=== PATIENT | female | born 1965 | race Caucasian/White ===

== ENCOUNTER 2017-06-18 22:13 | Emergency (ER) | payer SELFPAY ==
[2017-06-18 22:52] VITALS: BP 155/86
[2017-06-18] MEDS ORDERED: HYDROXYZINE PAMOATE 25 MG CAPSULE #4 (ER DISP) PO PRN (23:30)
--- NOTE | 2017-06-18 23:33 | ER Document Report ---
HPI - HPI Patient complains to provider of: anxiety Onset: This evening Onset/Duration: Gradual Quality of pain: No pain Pain Level: Denies Context: Patient states that her son killed himself 1 month ago today. Patient states that her nerves have been really bad and she has had difficulty in coping with this. Patient denies any suicidal or homicidal ideation. Patient complains of insomnia and feeling stressed. Patient is requesting something to help calm her nerves. Associated Symptoms: Other - Insomnia, anxiety Exacerbated by: Denies Relieved by: Denies Similar symptoms previously: No Recently seen / treated by doctor: No - ROS ROS below otherwise negative: Yes Systems Reviewed and Negative: Yes All other systems reviewed and negative - CONSTITUTIONAL Constitutional: DENIES: Fever - NEURO Neurology: DENIES: Headache - GASTROINTESTINAL Gastrointestinal: DENIES: Nausea - REPRODUCTIVE Reproductive: DENIES: : Past Medical History - General Information source: Patient - Social History Smoking Status: Never Smoker Frequency of alcohol use: None Drug Abuse: None Occupation: [employer] Lives with: Family Family History: Reviewed & Not Pertinent - Past Medical History Cardiac Medical History: Reports: Hx Hypertension Surgical Hx: Negative Past Surgical History: Reports: Hx Tonsillectomy - Immunizations Hx Diphtheria, Pertussis, Tetanus Vaccination: Yes Vertical Provider Document - CONSTITUTIONAL Agree With Documented VS: Yes Exam Limitations: No Limitations General Appearance: WD/WN, No Apparent Distress - INFECTION CONTROL TRAVEL OUTSIDE OF THE [place] IN LAST 30 DAYS: No - HEENT HEENT: Atraumatic, Normal ENT Exam, Normocephalic - NECK Neck: Normal Inspection, Supple, Thyroid Normal - RESPIRATORY Respiratory: Breath Sounds Normal, No Respiratory Distress O2 Sat by Pulse Oximetry: 100 - CARDIOVASCULAR Cardiovascular: Regular Rate, Regular Rhythm, No Murmur - MUSCULOSKELETAL/EXTREMETIES Musculoskeletal/Extremeties: MAEW - NEURO Level of Consciousness: Awake, Alert, Appropriate Motor/Sensory: No Motor Deficit - DERM Integumentary: Warm, Dry, No Rash Course - Re-evaluation Re-evalutation: 06/19/17 Patient denies any suicidal or homicidal ideation. Patient given outpatient referral information for mental health services as well as counseling. - Vital Signs Vital signs: Temp Pulse Resp BP Pulse Ox 97.7 F 78 16 155/86 H 100 06/18/17 22:50 06/18/17 22:50 06/18/17 22:50 06/18/17 22:50 06/18/17 22:50 Discharge - Discharge Clinical Impression: Situational anxiety Condition: Stable Disposition: HOME, SELF-CARE Instructions: Anxiety (OM) Additional Instructions: Return immediately for any new or worsening symptoms Followup with your primary care provider, call tomorrow to make a followup appointment Follow-up with a mental health provider from list provided for additional follow -up as well as counseling and support Prescriptions: Hydroxyzine HCl [Atarax 25 mg Tablet] 2 tab PO TID PRN #20 tablet PRN Reason: Forms: Return to Work Referrals: [facility] [Provider Group] - Follow up as needed
== END 2017-06-18 23:52 | disposition home or self-care (01) ==
LOC: ER 22:13
DX: F41.9 Anxiety disorder, unspecified (principal); I10 Essential (primary) hypertension
CPT/HCPCS: 99283; J3490

== ENCOUNTER 2017-08-06 19:39 | Emergency (ER) | payer SELFPAY ==
--- NOTE | 2017-08-06 20:17 | ER Document Report ---
HPI - HPI Patient complains to provider of: left knee pain Pain Level: 5 Context: patient is a 51-year-old female presents emergency department with a chief complaint of left knee pain. Denies any fall, trauma. States she she denies any recent travel, surgery, control or tobacco use. She denies any has been having issues with her left knee for years. She states that it is worse at the end of the day after work. Swelling, redness of her left lower extremity. Denies any history of DVT or PE. She does not follow with a primary care doctor - REPRODUCTIVE Reproductive: DENIES: : Past Medical History - Social History Smoking Status: Smoker,Current Status Unk Family History: Reviewed & Not Pertinent - Past Medical History Cardiac Medical History: Reports: Hx Hypertension Renal/ Medical History: Denies: Hx Peritoneal Dialysis Past Surgical History: Reports: Hx Tonsillectomy - Immunizations Hx Diphtheria, Pertussis, Tetanus Vaccination: Yes Vertical Provider Document - CONSTITUTIONAL Agree With Documented VS: Yes Notes: PHYSICAL EXAM GENERAL: Alert, interacts well. EXTREMITIES: Moves all 4 extremities spontaneously. Negative drawer and varus valgus testing of bilateral knees no edema, popliteal and dorsalis pedis pulses 2/4 bilaterally. No cyanosis. NEUROLOGICAL: Alert and oriented x4. Normal speech. Gait stable. Sensory, motor and reflex exams intact bilaterally PSYCH: Normal affect, normal mood. SKIN: Warm, dry, normal turgor. No rashes or lesions noted. - INFECTION CONTROL TRAVEL OUTSIDE OF THE [place] IN LAST 30 DAYS: No - RESPIRATORY O2 Sat by Pulse Oximetry: 99 Course - Re-evaluation Re-evalutation: 08/06/17 21:07 Patient is a 51-year-old female is hemodynamically stable, no acute distress, afebrile. Presentation is consistent with osteoarthritis. No evidence of a septic joint, gout flare, dislocation, or fracture on exam and imaging. Imaging shows evidence of osteoarthritis vitals wnl. At this time, I do not see an indication for labs or further imaging. Will discharge with conservative measures, return precautions, and follow-up recommendations. - Vital Signs Vital signs: Temp Pulse Resp BP Pulse Ox 97.5 F 75 14 142/89 H 99 08/06/17 19:58 08/06/17 19:58 08/06/17 19:58 08/06/17 19:58 08/06/17 19:58 - Diagnostic Test Radiology reviewed: Image reviewed, Reports reviewed Discharge - Discharge Clinical Impression: Osteoarthritis of left knee Qualifiers: Osteoarthritis type: primary Qualified Code(s): M17.12 - Unilateral primary osteoarthritis, left knee Condition: Good Disposition: HOME, SELF-CARE Instructions: Arthritis ([facility]), Knee Exercise Program ([facility]) Additional Instructions: You can utilize [id number] NSAIDs such as Aleve or Motrin which work is anti-inflammatories. Otherwise follow-up with pain management primary care for evaluation of your chronic knee pain. Forms: Return to Work Referrals: ROSA SERVIN MD [ACTIVE STAFF] - Follow up in 1 week [facility] [NO LOCAL MD] - Follow up as needed [facility] [Provider Group] - Follow up in 1 week (primary care)
--- NOTE | 2017-08-06 20:58 | RADIOLOGY REPORT (SQ) ---
EXAM DESCRIPTION: TIBIA FIBULA LEFT COMPLETED DATE/TIME: 08/06/2017 8:48 pm REASON FOR STUDY: chronic pain, swelling, no trauma COMPARISON: None. NUMBER OF VIEWS: Two views. TECHNIQUE: Two radiographic images acquired of the left tibia and fibula to include the knee and ank le in at least one projection. LIMITATIONS: None. FINDINGS: MINERALIZATION: Normal. BONES: No acute fracture or dislocation. No worrisome bone lesions. SOFT TISSUES: No obvious swelling or foreign body. OTHER: No other significant finding. IMPRESSION: NEGATIVE STUDY OF THE LEFT TIBIA AND FIBULA. NO RADIOGRAPHIC EVIDENCE OF ACUTE INJURY. TECHNICAL DOCUMENTATION: JOB ID: [id number] [employer]- All Rights Reserved
--- NOTE | 2017-08-06 20:58 | RADIOLOGY REPORT (SQ) ---
EXAM DESCRIPTION: KNEE LEFT 3 VIEWS COMPLETED DATE/TIME: 08/06/2017 8:48 pm REASON FOR STUDY: chronic pain, swelling, no trauma COMPARISON: None. NUMBER OF VIEWS: Three views. TECHNIQUE: AP, lateral, and sunrise patella radiographic images acquired of the left knee. LIMITATIONS: None. FINDINGS: MINERALIZATION: Normal. BONES: No acute fracture or dislocation. No worrisome bone lesions. JOINT: Mild tricompartmental osteoarthritis. No significant joint effusion. SOFT TISSUES: Medial soft tissue swelling. OTHER: No other significant finding. IMPRESSION: SOFT TISSUE SWELLING. MILD TRICOMPARTMENTAL OSTEOARTHRITIS. NO ACUTE OSSEOUS ABNORMALI TY. TECHNICAL DOCUMENTATION: JOB ID: [id number] [employer]- All Rights Reserved
[2017-08-06] MEDS ORDERED: IBUPROFEN 800 MG TABLET PO ONE (21:10)
[2017-08-06 21:25] VITALS: BP 146/88
== END 2017-08-06 21:25 | disposition home or self-care (01) ==
LOC: ER 19:39
DX: M17.12 Unilateral primary osteoarthritis, left knee (principal); M25.562 Pain in left knee; F17.200 Nicotine dependence, unspecified, uncomplicated
CPT/HCPCS: 99283

== ENCOUNTER 2018-11-09 12:09 | Emergency (ER) | payer SELFPAY ==
[2018-11-09] MEDS ORDERED: IPRATROPIUM/ALBUTEROL 0.5-2.5 MG/3 ML AMPUL NEB ONE (12:53)
[2018-11-09] MEDS ORDERED: PREDNISONE 20 MG TABLET PO ONE (12:53)
[2018-11-09] MEDS ORDERED: ACETAMINOPHEN 325 MG TABLET PO ONE (12:54)
--- NOTE | 2018-11-09 12:55 | ER Document Report ---
HPI - HPI Patient complains to provider of: cough Time Seen by Provider: 11/09/18 12:44 Onset: Other - 5 days Onset/Duration: Persistent Quality of pain: Achy Pain Level: 3 Context: Patient presents stating that she has been sick for the past week. Patient states initially she had fevers but has not had a fever for the past 4 days. Patient states she has had a productive cough with green sputum. Patient states that 4 days ago she had periumbilical pain but attributed this to needing to have a bowel movement. Patient states after having a bowel movement her sy mptoms resolved. Patient does complain of sinus congestion symptoms. Patient denies any headache pain at this time. Patient does complain of chills and body aches. Patient denies any nausea or vomiting. Associated Symptoms: Productive cough, Rhinnorhea, Sinus pain/drainage. denies: Chest pain, Earache Exacerbated by: Denies Relieved by: Denies Similar symptoms previously: Yes Recently seen / treated by doctor: No - ROS ROS below otherwise negative: Yes Systems Reviewed and Negative: Yes All other systems reviewed and negative - CONSTITUTIONAL Constitutional: REPORTS: Fever - 4 days ago, Chills - EENT EENT: REPORTS: Nasal Drainage-Clear, Congestion. DENIES: Sore Throat - NEURO Neurology: REPORTS: Headache - now better - CARDIOVASCULAR Cardiovascular: DENIES: Chest pain - RESPIRATORY Respiratory: REPORTS: Coughing - GASTROINTESTINAL Gastrointestinal: DENIES: Abdominal Pain, Patient vomiting, Diarrhea - REPRODUCTIVE Reproductive: DENIES: : - MUSCULOSKELETAL Musculoskeletal: DENIES: Back Pain - DERM Skin Color: Normal Skin Problems: None Past Medical History - General Information source: Patient - Social History Smoking Status: Never Smoker Frequency of alcohol use: None Drug Abuse: None Occupation: deliverer food Lives with: Family Family History: Reviewed & Not Pertinent - Past Medical History Cardiac Medical History: Reports: Hx Hypertension Renal/ Medical History: Denies: Hx Peritoneal Dialysis Past Surgical History: Reports: Hx Tonsillectomy - Immunizations Hx Diphtheria, Pertussis, Tetanus Vaccination: Yes Vertical Provider Document - CONSTITUTIONAL Agree With Documented VS: Yes Exam Limitations: No Limitations General Appearance: WD/WN, No Apparent Distress - INFECTION CONTROL TRAVEL OUTSIDE OF THE [place] IN LAST 30 DAYS: No - HEENT HEENT: Atraumatic, Normocephalic. negative: Pharyngeal Exudate, Pharyngeal Tenderness, Pharyngeal Erythema, Tympanic Membrane Red, Tympanic Membrane Bulging - NECK Neck: Normal Inspection, Supple. negative: Lymphadenopathy-Left, Lymphadenopathy-Right - RESPIRATORY Respiratory: No Respiratory Distress, Chest Non-Tender, Wheezing - CARDIOVASCULAR Cardiovascular: Regular Rate, Regular Rhythm, No Murmur. negative: Tachycardia - GI/ABDOMEN Gastrointestinal: Abdomen Soft, Abdomen Non-Tender, No Organomegaly, Normal Bowel Sounds - BACK Back: Normal Inspection - MUSCULOSKELETAL/EXTREMETIES Musculoskeletal/Extremeties: MAEW, FROM, Non-Tender, No Edema - NEURO Level of Consciousness: Awake, Alert, Appropriate Motor/Sensory: No Motor Deficit - DERM Integumentary: Warm, Dry, No Rash Course - Re-evaluation Re-evalutation: 11/09/18 14:45 Pt reports that her cough has improved after nebulizer treatment. Chest x-ray reviewed, no concern for pneumonia at this time. Patient continues to deny any headache or abdominal tenderness at this time. No concern for sepsis. - Vital Signs Vital signs: Temp Pulse Resp BP Pulse Ox 97.6 F 72 20 157/87 H 99 11/09/18 12:18 11/09/18 12:18 11/09/18 12:18 11/09/18 12:18 11/09/18 12:18 - Diagnostic Test Radiology reviewed: Image reviewed, Reports reviewed Discharge - Discharge Clinical Impression: Wheezing Upper respiratory infection Qualifiers: URI type: unspecified URI Qualified Code(s): J06.9 - Acute upper respiratory infection, unspecified Condition: Stable Disposition: HOME, SELF-CARE Additional Instructions: Return immediately for any new or worsening symptoms Followup with your primary care provider, call tomorrow to make a followup appointment UPPER RESPIRATORY ILLNESS: You have a viral infection of the respiratory passages -- a "cold." This common infection causes nasal congestion, drainage, and often sore throat and cough. It is highly contagious. The disease usually lasts about 10 to 14 days. There is no "cure" for the viral infection -- it must run its course. If there is a complication, such as bacterial infection in the nose, sinuses, middle ear, or bronchial tubes, antibiotics may be required. The antibiotics won't affect the virus. Drink plenty of fluids. A humidifier may help. An expectorant medication or decongestant may make you more comfortable. Use acetaminophen or ibuprofen for fever or aches. See the doctor if fever persists over two days, if there is any significant worsening of your symptoms, or if you simply fail to improve as expected. BRONCHOSPASM: You have tightness in the bronchial tubes, called bronchospasm. This often occurs with bronchial infections. Allergies, inhaled chemicals, and polluted or cold air can also provoke bronchospasm. It's more likely in patients with asthma in the family. Emergency treatment of bronchospasm may include adrenaline shots or bronchodilator aerosol. You may feel lightheaded and have a rapid pulse for an hour or two. Rest and get plenty of fluids. At home, we'll treat you with a bronchodilator inhaler. Antibiotics and corticosteroids may be required for some patients. Until you recover, avoid chemical fumes, dusts, pollens, and exercising in very cold or dry air. If you smoke, stop now!! If you develop a fever, increased wheezing, chest pain, or severe shortness of breath, you should contact the doctor immediately. INHALED BRONCHODILATORS: You have received a treatment of and/or prescription for an inhaled bronchodilator -- a medication which stimulates the airways in the lung to dilate. This improves the flow of air in asthma, bronchitis, and emphysema. These medicines have some similarity to adrenaline, and can cause similar side effects: shakiness, racing heart, and a sense of nervousness. These side effects decrease with time. Contact your doctor if these side effects are severe. Do not over-use the medicine. Too-frequent use of the inhaler may make it ineffective. Call your doctor if the inhaler is not controlling your symptoms at the prescribed doses. STEROID MEDICATION: You have been given an injection of or oral medicine of the cortisone/steroid class. This medication is used to control inflammation or allergy. Gordo t is usually only given for a short period of time, until the acute process subsides. There are usually no side effects from short-term use of cortisone-like medications. Some persons feel an increased sense of well-being and are not sleepy at bedtime. Long-term use of cortisone medications is best avoided, unless required for a severe condition. If your condition does not remit, or relapses after the course of corticosteroid medication, you should consult your physician. USE OF ACETAMINOPHEN (Tylenol): Acetaminophen may be taken for pain relief or fever control. It's much safer than aspirin, offering a wider range of "safe" dosages. It is safe during . Some brand names are Tylenol, Panadol, Datril, Anacin 3, Tempra, and Liquiprin. Acetaminophen can be repeated every four hours. The following are maximum recommended dosages: >89 pounds or adults 650 mg to 900 mg Acetaminophen can be repeated every four hours. Maximum dose not to exceed 4000 mg a day. FOLLOW-UP CARE: If you have been referred to a physician for follow-up care, [facility] for an appointment as you were instructed or within the next two days. If you experience worsening or a significant change in your symptoms, notify the physician immediately or return to the Emergency Department at any time for re-evaluation. Prescriptions: Albuterol Sulfate [Proair Hfa Inhalation Aerosol 8.5 gm Mdi] 2 puff IH Q4 PRN #1 mdi PRN Reason: Inhaler,Assist Device,Accesory [Optichamber] 1 each MC Q4 PRN #1 each PRN Reason: Prednisone [Deltasone 20 mg Tablet] 3 tab PO DAILY 4 Days tablet Forms: Return to Work Referrals: [facility] [Provider Group] - Follow up as needed [facility] [Provider Group] - Follow up as needed
--- NOTE | 2018-11-09 13:21 | RADIOLOGY REPORT (SQ) ---
EXAM DESCRIPTION: CHEST 2 VIEWS COMPLETED DATE/TIME: 11/09/2018 1:09 pm REASON FOR STUDY: cough COMPARISON: None. EXAM PARAMETERS: NUMBER OF VIEWS: two views TECHNIQUE: Digital Frontal and Lateral radiographic views of the chest acquired. RADIATION DOSE: NA LIMITATIONS: none FINDINGS: LUNGS AND PLEURA: No opacities, masses or pneumothorax. No pleural effusion. MEDIASTINUM AND HILAR STRUCTURES: No masses or contour abnormalities. HEART AND VASCULAR STRUCTURES: Heart normal size. No evidence for failure. BONES: Serpiginous thoracolumbar curvature. No acute bony abnormality. HARDWARE: None in the chest. OTHER: No other significant finding. IMPRESSION: NO ACUTE RADIOGRAPHIC FINDING IN THE CHEST. TECHNICAL DOCUMENTATION: JOB ID: [id number] [employer]- All Rights Reserved Reading location - IP/workstation name: [email or web address]
[2018-11-09 15:00] VITALS: BP 150/82
== END 2018-11-09 14:58 | disposition home or self-care (01) ==
LOC: ER 12:09
DX: J06.9 Acute upper respiratory infection, unspecified (principal); R05 Cough; R68.83 Chills (without fever); J34.89 Other specified disorders of nose and nasal sinuses; R06.2 Wheezing; I10 Essential (primary) hypertension
CPT/HCPCS: 94640; 99283; 71046; J7512; J7620

== ENCOUNTER 2018-11-14 10:02 | Emergency (ER) | payer SELFPAY ==
[2018-11-14] MEDS ORDERED: DIPH/PERTUSS(ACELL)/TETANUS VAC/PF 0.5 ML SYR (>=10YO) IM ONE (10:52)
--- NOTE | 2018-11-14 10:53 | ER Document Report ---
ED Medical Screen (RME) - General Chief Complaint: Leg Pain Stated Complaint: LEG PAIN Time Seen by Provider: 11/14/18 10:51 Mode of Arrival: Ambulatory Information source: Patient Notes: 53-year-old female presented to ED for complaint of right upper leg pain and swelling started after the weekend. 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 She denies smoking or doing any kind of hormones she does have a history of high blood pressure. Only surgeries are tonsillectomy as a child. She also cut her hand yesterday and her tetanus is not up-to-date so a tetanus shot will be given in the emergency room. Patient is alert oriented respirations regular and unlabored speaking in full sentences walks with a limp due to the pain in her right upper leg. I have greeted and performed a rapid initial assessment of this patient. A comprehensive ED assessment and evaluation of the patient, analysis of test res ults and completion of medical decision making process will be conducted by an additional ED providers. Dictation of this chart was performed using voice recognition software; therefore, there may be some unintended grammatical errors. TRAVEL OUTSIDE OF THE [place] IN LAST 30 DAYS: No - Related Data Allergies/Adverse Reactions: No Known Allergies Allergy (Unverified 11/09/18 12:11) Past Medical History - Social History Frequency of alcohol use: None Drug Abuse: None - Past Medical History Cardiac Medical History: Reports: Hx Hypertension Renal/ Medical History: Denies: Hx Peritoneal Dialysis Past Surgical History: Reports: Hx Tonsillectomy - Immunizations Hx Diphtheria, Pertussis, Tetanus Vaccination: Yes Physical Exam - Vital signs Vitals: Temp Pulse Resp BP Pulse Ox 97.7 F 67 20 145/90 H 97 11/14/18 10:14 11/14/18 10:14 11/14/18 10:14 11/14/18 10:14 11/14/18 10:14 Course - Vital Signs Vital signs: Temp Pulse Resp BP Pulse Ox 97.7 F 67 20 145/90 H 97 11/14/18 10:14 11/14/18 10:14 11/14/18 10:14 11/14/18 10:14 11/14/18 10:14
[2018-11-14 11:12] LABS: ABSOLUTE EOSINOPHILS # (AUTO) 0.2 10^3/uL (0.0-0.6); ABSOLUTE LYMPHOCYTES (AUTO) 1.4 10^3/uL (0.5-4.7); ABSOLUTE MONOCYTES (AUTO) 0.6 10^3/uL (0.1-1.4); ABSOLUTE NEUT (AUTO) 3.4 10^3/uL (1.7-8.2); BASOPHILS % (AUTO) 0.2 % (0-2); HEMATOCRIT 37.3 % (36.0-47.0); HEMOGLOBIN 12.1 g/dL (12.0-15.5); LYMPHOCYTES % (AUTO) 25.3 % (13-45); MEAN CORPUSCULAR HEMOGLOBIN 27.5 pg (27.0-33.4); MEAN CORPUSCULAR HGB CONC 32.6 g/dL (32.0-36.0); MEAN CORPUSCULAR VOLUME 84 fl (80-97); MONOCYTES % (AUTO) 10.1 % (3-13); PLATELET COUNT 277 10^3/uL (150-450); RED BLOOD COUNT 4.41 10^6/uL (3.72-5.28); RED CELL DISTRIBUTION WIDTH 14.5 % (11.5-14.0); SEGMENTED NEUTROPHILS % (AUTO) 61.4 % (42-78); TOTAL CELLS COUNTED % (AUTO) 100 %; WHITE BLOOD COUNT 5.5 10^3/uL (4.0-10.5)
[2018-11-14 11:31] LABS: ALANINE AMINOTRANSFERASE 30 U/L (9-52); ALBUMIN 3.9 g/dL (3.5-5.0); ALKALINE PHOSPHATASE 92 U/L (38-126); ANION GAP 9 (5-19); ASPARTATE AMINO TRANSFERASE 25 U/L (14-36); BILIRUBIN,DIRECT 0.2 mg/dL (0.0-0.4); BILIRUBIN,TOTAL 0.3 mg/dL (0.2-1.3); BLOOD UREA NITROGEN 16 mg/dL (7-20); CALCIUM 9.3 mg/dL (8.4-10.2); CARBON DIOXIDE 27 mmol/L (22-30); CHLORIDE 104 mmol/L (98-107); GLUCOSE 89 mg/dL (75-110); POTASSIUM 4.3 mmol/L (3.6-5.0); SODIUM 139.8 mmol/L (137-145); TOTAL PROTEIN 6.9 g/dL (6.3-8.2)
--- NOTE | 2018-11-14 13:18 | ER Document Report ---
ED General - General Chief Complaint: Leg Pain Stated Complaint: LEG PAIN Time Seen by Provider: 11/14/18 10:51 Primary Care Provider: RAYMUNDO HORTON DO [ACTIVE STAFF] - Follow up in 3-5 days (orthopedic surgery ) Mode of Arrival: Ambulatory Notes: Patient is a 53-year-old female that presents to the emergency department for chief complaint of right hip pain and possible swelling. Patient states she is had pain in her right hip and thigh over the past several days, she is not sure she may be pulled something at work, but is been painful particularly with walking. She describes as an aching pain, towards her groin, and worse with walking. She currently rates the pain at rest as a 4 out of 10. She denies any recent travel, or significant leg swelling, she thought it was possibly more swollen than her left leg, but she is not entirely sure. She denies any recent surgeries, denies any hormone supplementation. She denies any chest pain, shortness of breath, difficulty breathing. 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 She denies taking any medication at home to try to help relieve her pain. Past Medical History: Hypertension Past Surgical History: Tonsillectomy Social History: Denies tobacco, alcohol or drug use. Family History: Reviewed and noncontributory for presenting illness Allergies: Reviewed, see documented allergy list. REVIEW OF SYSTEMS: Other than noted above, the 12 point review of systems was reviewed with the patient and were negative, all pertinent findings are included in the HPI. PHYSICAL EXAMINATION: Vital signs reviewed, nursing noted reviewed. GENERAL: Obese female, but in no acute distress HEAD: Atraumatic, normocephalic. EYES: Eyes appear normal, extraocular movements intact, sclera anicteric, conjunctiva are normal. ENT: nares patent, oropharynx clear without exudates. Moist mucous membranes. NECK: Normal range of motion, supple without lymphadenopathy LUNGS: Breath sounds clear to auscultation bilaterally and equal. No wheezes rales or rhonchi. HEART: Regular rate and rhythm without murmurs ABDOMEN: Soft, nontender, normoactive bowel sounds. No rebound, guarding, or rigidity. No masses appreciated. EXTREMITIES: Nontender, good range of motion, no pitting or edema. Patient does have some discomfort with logrolling on the right lower extremity, there is no particular tenderness to palpation to the thigh, no significant edema bilaterally, the legs appear normal in size bilaterally, patient does have some superficial varicosities, in both legs, she states she has had these for a very long time. Otherwise she has good range of motion of all joints including the hips bilaterally, but she does have some discomfort with flexion of the hip on the right compared to the left. NEUROLOGICAL: No focal neurological deficits. Moves all extremities s pontaneously Motor and sensory grossly intact on exam. PSYCH: Normal mood, normal affect. SKIN: Warm, Dry, normal turgor, no rashes or lesions noted on exposed skin TRAVEL OUTSIDE OF THE [place] IN LAST 30 DAYS: No - Related Data Allergies/Adverse Reactions: No Known Allergies Allergy (Unverified 11/09/18 12:11) Past Medical History - General Information source: Patient - Social History Smoking Status: Never Smoker Frequency of alcohol use: None Drug Abuse: None Family History: Reviewed & Not Pertinent Patient has suicidal ideation: No Patient has homicidal ideation: No - Past Medical History Cardiac Medical History: Reports: Hx Hypertension Renal/ Medical History: Denies: Hx Peritoneal Dialysis Past Surgical History: Reports: Hx Tonsillectomy - Immunizations Hx Diphtheria, Pertussis, Tetanus Vaccination: Yes Physical Exam - Vital signs Vitals: Temp Pulse Resp BP Pulse Ox 97.7 F 67 20 145/90 H 97 11/14/18 10:14 11/14/18 10:14 11/14/18 10:14 11/14/18 10:14 11/14/18 10:14 Course - Re-evaluation Re-evalutation: Patient seen and examined vital signs reviewed. Laboratory data and/or imaging were ordered as appropriate for the patient's presenting symptoms and complaint, with consideration of any critical or life threatening conditions that may be associated with their obtained history and exam as noted above. Results were reviewed when available and demonstrated unremarkable blood work and evaluation, negative duplex imaging of the lower extremity, patient's physical exam is most consistent with acetabular impingement syndrome, given she is on her feet most the day, has pain mainly with hip flexion. The patient was re-evaluated and was stable, recommended treatment with naproxen 500 mg twice daily for a few weeks, patient given prescription advised follow-up with orthopedics Results were discussed with the patient at this point, after careful consideration I feel that that patient can be discharged from the emergency department, the patient was educated treatments and reasons to return to the emergency department based on their presumed diagnosis as noted above, they were advised to followup with a primary care physician in 2-3 days. Patient was agre eable to plan of care. *Note is created using voice recognition software and may contain spelling, syntax or grammatical errors. Laboratory 11/14/18 11/14/18 11:00 11:00 WBC 5.5 RBC 4.41 Hgb 12.1 Hct 37.3 MCV 84 MCH 27.5 MCHC 32.6 RDW 14.5 H Plt Count 277 Seg Neutrophils % 61.4 Lymphocytes % 25.3 Monocytes % 10.1 Eosinophils % 3.0 Basophils % 0.2 Absolute Neutrophils 3.4 Absolute Lymphocytes 1.4 Absolute Monocytes 0.6 Absolute Eosinophils 0.2 Absolute Basophils 0.0 Sodium 139.8 Potassium 4.3 Chloride 104 Carbon Dioxide 27 Anion Gap 9 BUN 16 Creatinine 0.59 Est GFR ( Amer) > 60 Est GFR (Non-Af Amer) > 60 Glucose 89 Calcium 9.3 Total Bilirubin 0.3 Direct Bilirubin 0.2 Neonat Total Bilirubin Not Reportable Neonat Direct Bilirubin Not Reportable Neonat Indirect Bili Not Reportable AST 25 ALT 30 Alkaline Phosphatase 92 Total Protein 6.9 Albumin 3.9 Venous Doppler Study 11/14/18 10:51 IMPRESSION: NO EVIDENCE DVT OR SVT IN THE RIGHT LEG. - Vital Signs Vital signs: Temp Pulse Resp BP Pulse Ox 97.4 F 58 L 16 149/80 H 98 11/14/18 13:30 11/14/18 13:30 11/14/18 13:30 11/14/18 13:30 11/14/18 13:30 - Laboratory Result Diagrams: 11/14/18 11:00 11/14/18 11:00 Laboratory results interpreted by me: 11/14/18 11:00 RDW 14.5 H Discharge - Discharge Clinical Impression: Right leg pain Condition: Stable Disposition: HOME, SELF-CARE Instructions: Leg Pain Nonspecific ([facility]) Additional Instructions: Please start taking the prescribed anti-inflammatory medication twice daily, and attempt rest as much as you can to your right leg, and please follow-up with orthopedic surgery, you can call for an appointment. Prescriptions: RX: Naproxen [Naprosyn] 500 mg PO BID #30 tablet Referrals: RAYMUNDO HORTON DO [ACTIVE STAFF] - Follow up in 3-5 days (orthopedic surgery )
[2018-11-14 13:31] VITALS: BP 149/80
--- NOTE | 2018-11-14 13:42 | RADIOLOGY REPORT (SQ) ---
EXAM DESCRIPTION: VENOUS UNILATERAL LOWER COMPLETED DATE/TIME: 11/14/2018 1:33 pm REASON FOR STUDY: Right upper leg pain and swelling COMPARISON: None. TECHNIQUE: Dynamic and static bingham scale and color images acquired of the right leg venous system. S elected spectral images acquired with additional compression and augmentation maneuvers. The contrala teral common femoral vein and saphenofemoral junction were also imaged. Images stored on PACS. LIMITATIONS: None. FINDINGS: COMMON FEMORAL: Normal phasicity, compression and augmentation. No visualized echogenic ma terial on bingham scale. No defects on color images. FEMORAL: Normal compression and augmentation. No visualized echogenic material on bingham scale. No defe cts on color images. POPLITEAL: Normal compression, augmentation. No visualized echogenic material on bingham scale. No defec ts on color images. CALF VESSELS: Normal compression, augmentation. No visualized echogenic material on bingham scale. No de fects on color images. GSV and SSV: Normal compression, augmentation. No visualized echogenic material on bingham scale. No def ects on color images. ANY DEEP VENOUS INSUFFICIENCY: No. ANY EVIDENCE OF POPLITEAL CYST: No. OTHER: No other significant finding. CONTRALATERAL COMMON FEMORAL VEIN AND SAPHENOFEMORAL JUNCTION: Normal phasicity, compression and augmentation. No visualized echogenic material on bingham scale. No de fects on color images. IMPRESSION: NO EVIDENCE DVT OR SVT IN THE RIGHT LEG. TECHNICAL DOCUMENTATION: JOB ID: [id number] [employer]- All Rights Reserved Reading location - IP/workstation name: [email or web address]
== END 2018-11-14 13:34 | disposition home or self-care (01) ==
LOC: ER 10:02
DX: M79.651 Pain in right thigh (principal); M25.551 Pain in right hip; I83.93 Asymptomatic varicose veins of bilateral lower extremities; I10 Essential (primary) hypertension
CPT/HCPCS: 36415; 80053; 85025; 90471; 90715; 93971; 99284

== ENCOUNTER → 2019-01-12 | Outpatient (CLI) | payer MEDICAID ==
--- NOTE | 2019-01-12 13:42 | RADIOLOGY REPORT (SQ) ---
EXAM DESCRIPTION: HIPS BILATERAL COMPLETED DATE/TIME: 01/12/2019 1:31 pm REASON FOR STUDY: BILATERAL HIP PAIN M25.561 PAIN IN RIGHT KNEE M54.5 LOW BACK PAIN M25.552 PAIN IN LEFT HIP COMPARISON: None. NUMBER OF VIEWS: Two views TECHNIQUE: AP pelvis and additional frog-leg view of both hips. LIMITATIONS: None. FINDINGS: MINERALIZATION: Normal. HIPS: No acute fracture or dislocation. No worrisome bone lesions. PELVIS AND SACRUM: No acute fracture or dislocation. No worrisome bone lesions. PUBIS AND ISCHIUM: There is a mottled appearing partially lytic lesion in the right inferior pubic ra mus. Metastatic disease cannot be excluded. Is there a known primary? Further evaluation with MRI CT to evaluate for associated soft tissue mass. Alternatively whole-body bone scan could be performe d to evaluate for other lesions. LOWER LUMBAR SPINE: No significant findings as visualized. SOFT TISSUES: No findings. OTHER: No other significant finding. IMPRESSION: Aggressive appearing lesion in the right inferior pubic ramus. Recommend MRI or CT for further evaluation. No acute fracture or dislocation. TECHNICAL DOCUMENTATION: JOB ID: [id number] 2012[employer]- All Rights Reserved Reading location - IP/workstation name: [email or web address]
--- NOTE | 2019-01-12 13:43 | RADIOLOGY REPORT (SQ) ---
EXAM DESCRIPTION: KNEE RIGHT 4 VIEWS COMPLETED DATE/TIME: 01/12/2019 1:35 pm REASON FOR STUDY: PAIN IN RIGHT KNEE M25.561 PAIN IN RIGHT KNEE M54.5 LOW BACK PAIN M25.552 PAIN IN LEFT HIP COMPARISON: 11/03/2015 NUMBER OF VIEWS: Four views. TECHNIQUE: AP, lateral, and both oblique radiographic images acquired of the right knee. LIMITATIONS: None. FINDINGS: MINERALIZATION: Normal. BONES: No acute fracture or dislocation. No worrisome bone lesions. JOINT: No effusion. SOFT TISSUES: No soft tissue swelling. No radio-opaque foreign body. OTHER: No other significant finding. IMPRESSION: NEGATIVE STUDY OF THE RIGHT KNEE. NO RADIOGRAPHIC EVIDENCE OF ACUTE INJURY. TECHNICAL DOCUMENTATION: JOB ID: [id number] [employer]- All Rights Reserved Reading location - IP/workstation name: [email or web address]
--- NOTE | 2019-01-12 13:43 | RADIOLOGY REPORT (SQ) ---
EXAM DESCRIPTION: LUMBAR SPINE COMPLETE COMPLETED DATE/TIME: 01/12/2019 1:35 pm REASON FOR STUDY: LOW BACK PAIN M25.561 PAIN IN RIGHT KNEE M54.5 LOW BACK PAIN M25.552 PAIN IN LE FT HIP COMPARISON: None. NUMBER OF VIEWS: Five views including obliques. TECHNIQUE: AP, lateral, oblique, and sacral radiographic images acquired of the lumbar spine. LIMITATIONS: None. FINDINGS: MINERALIZATION: Normal. SEGMENTATION: Normal. No transitional anatomy. ALIGNMENT: There is scoliosis with concavity toward the right. VERTEBRAE: Maintained height. No fracture or worrisome bone lesion. DISCS: Multilevel disc space narrowing with osteophytes. POSTERIOR ELEMENTS: Pedicles and facets are intact. No pars defect or posterior arch defects. Facet arthropathy is present. HARDWARE: None in the spine. PARASPINAL SOFT TISSUES: Normal. PELVIS: Intact as visualized. No fractures or worrisome bone lesions. SI joints intact. OTHER: No other significant finding. IMPRESSION: SPONDYLOSIS WITHOUT BONE LESION OR FRACTURE. SCOLIOSIS WITH CONCAVITY TOWARD THE RIGHT. TECHNICAL DOCUMENTATION: JOB ID: [id number]- All Rights Reserved Reading location - IP/workstation name: [email or web address]
== END ==
LOC: OD 12:57
PROVIDERS: ATTEND Family Medicine
DX: M25.551 Pain in right hip (principal); M25.552 Pain in left hip; M47.896 Other spondylosis, lumbar region; M54.5 Low back pain; M25.561 Pain in right knee; M89.9 Disorder of bone, unspecified
CPT/HCPCS: 72110; 73522

== ENCOUNTER → 2019-01-30 | Outpatient (CLI) | payer MEDICAID ==
--- NOTE | 2019-01-30 11:09 | RADIOLOGY REPORT (SQ) ---
EXAM DESCRIPTION: CT PELVIS WITH COMPLETED DATE/TIME: 01/30/2019 7:58 am REASON FOR STUDY: LYTIC LESION OF BONE ON XRAY (M89.9) M89.9 DISORDER OF BONE, UNSPECIFIED COMPARISON: None. TECHNIQUE: CT scan of the pelvis performed with intravenous and no oral contrast using helical scann ing technique with dynamic intravenous contrast injection. Images reviewed with lung, soft tissue, an d bone windows. Reconstructed coronal and sagittal MPR images reviewed. Delayed images for evaluation of the urinary system also acquired. All images stored on PACS. All CT scanners at this facility use dose modulation, iterative reconstruction, and/or weight based d osing when appropriate to reduce radiation dose to as low as reasonably achievable (ALARA). [facility]: Dose Right [facility]: CareDose [facility]: Dose Right [facility]: Teradose 4D [facility]: ChowNow CONTRAST TYPE AND DOSE: contrast/concentration: Isovue 350.00 mg/ml; Total Contrast Delivered: 78.0 ml; Total Saline Delivered: 67.0 ml RENAL FUNCTION: GFR > 60. RADIATION DOSE: CT Rad equipment meets quality standard of care and radiation dose reduction techniq ues were employed. CTDIvol: 7.7 - 9.0 mGy. DLP: 483 mGy-cm. . LIMITATIONS: None. FINDINGS: PELVIS: No significant masses. Normal bladder. No free fluid. ABDOMINAL WALL: No masses. No hernias. BONES: Fractures identified of the superior and inferior pubic ramus on the right. These do not appe ar to represent pathologic fractures. Degenerative changes in lower lumbar spine. OTHER: No other significant finding. IMPRESSION: There are healing fractures of the superior inferior pubic ramus on the right. These do not appear to represent pathologic fractures. No other additional bone lesions identified on limited study of the CT pelvis. TECHNICAL DOCUMENTATION: JOB ID: [id number] Quality ID # [id number]: Final reports with documentation of one or more dose reduction techniques (e.g., Au tomated exposure control, adjustment of the mA and/or kV according to patient size, use of iterative reconstruction technique) 2010 [employer]- All Rights Reserved Reading location - IP/workstation name: [email or web address]
--- NOTE | 2019-01-30 11:13 | RADIOLOGY REPORT (SQ) ---
EXAM DESCRIPTION: NM BONE SCAN LIMITED COMPLETED DATE/TIME: 01/30/2019 10:23 am REASON FOR STUDY: LYTIC LESION OF BONE ON XRAY (M89.9) M89.9 DISORDER OF BONE, UNSPECIFIED COMPARISON: Plain radiographs. CT. RADIONUCLIDE AND DOSE: 20.4 millicuries Tc99m HDP. The route of agent administration: Intravenous. ADDITIONAL DRUGS AND DOSES: None. TECHNIQUE: Routine delayed images at 3 hour post radionuclide injection acquired of the bony skeleto n including anterior and posterior whole-body projections and additional focused images as needed. LIMITATIONS: None. FINDINGS: BONES: Study was limited to the pelvis lower lumbar spine and proximal femurs. Activity i dentified in the superior and inferior pubic rami on the right which correspond to the lesion seen on CT and plain radiographs and appear to represent healing fractures. No additional lesions identifie d of the limited study. Remainder of the body was not imaged. KIDNEYS: Not imaged. OTHER: No other significant finding. IMPRESSION: Activity in the superior and inferior pubic ramus on the right corresponding to the frac tures seen on plain radiographs. No additional lesions noted on this limited study. Note that no imaging performed above the level of the lower lumbar spine. COMMENT: Quality measure 147: Current bone scan is compared with any available plain radiographs, p rior bone scans, and CT/MRI. TECHNICAL DOCUMENTATION: JOB ID: [id number] [employer]- All Rights Reserved Reading location - IP/workstation name: [email or web address]
== END ==
LOC: RAD 07:24
PROVIDERS: ATTEND Family Medicine
DX: M89.9 Disorder of bone, unspecified (principal)
CPT/HCPCS: 82565; 78305; 72193; A9561; Q9969

== ENCOUNTER → 2019-02-09 | Outpatient (CLI) | payer MEDICAID ==
--- NOTE | 2019-02-09 11:25 | WOMENS IMAGING REPORT ---
EXAM DESCRIPTION: BONE DENSITY HIP/SPINE COMPLETED DATE/TIME: 02/09/2019 10:22 am REASON FOR STUDY: M81.0 M81.0 AGE-RELATED OSTEOPOROSIS W/O CURRENT PATHOLOGICAL FRAC COMPARISON: None. TECHNIQUE: Dual-Energy X-ray Absorptiometry (DEXA) of the AP Spine and Hip. LIMITATIONS: None. FINDINGS: LUMBAR SPINE: The bone mineral density (BMD) measured from L1-L4 in the AP projection correlates with a T-score of -0.5, which is normal as defined by the World Health Organization. BMD Change vs Baseline: N/A HIP: The bone mineral density (BMD) measured in the left hip correlates with a T-score of -2.1, which is o steopenia as defined by the World Health Organization. BMD Change vs Baseline: N/A 10 year Fracture Risk Assessment: Major Osteoporotic Fracture: Not available. Hip Fracture: Not available. IMPRESSION: 1. LUMBAR SPINE WHO CLASSIFICATION: Normal 2. HIP WHO CLASSIFICATION: Osteopenia OVERALL ASSESSMENT: WHO CLASSIFICATION: Osteopenia COMMENT: The World Health Organization defines low BMD as follows: T-score: Normal: Greater than -1.0 Osteopenia: Between -1.0 and -2.5 Osteoporosis: Less than -2.5 without fractures Established osteoporosis: Less than -2.5 with fractures In general, you may wish to consider: Diagnosis Treatment Follow-up DEXA Normal BMD Prevention 2-3 years Osteopenia Prevention/Therapy 1-2 years Osteoporosis Therapy Yearly TECHNICAL DOCUMENTATION: JOB ID: [id number] [employer]- All Rights Reserved Reading location - IP/workstation name: [email or web address]
== END ==
LOC: WI 09:58
PROVIDERS: ATTEND Family Medicine
DX: M81.0 Age-related osteoporosis without current pathological fracture (principal)
CPT/HCPCS: 77080

== ENCOUNTER → 2019-04-10 | Outpatient (CLI) | payer MEDICAID ==
--- NOTE | 2019-04-10 15:10 | RADIOLOGY REPORT (SQ) ---
EXAM DESCRIPTION: PELVIS AP COMPLETED DATE/TIME: 04/10/2019 1:37 pm REASON FOR STUDY: M80.80XG OTH OSTEOPOR W CRNT PATH FX, UNSP SITE, 7THG M80.80XG OTH OSTEOPOR W CRN T PATH FX, UNSP SITE, 7THG COMPARISON: CT pelvis 01/30/2019 Bone scan 01/30/2019 Bilateral hip and pelvis films 01/12/2019 NUMBER OF VIEWS: One view TECHNIQUE: AP Pelvis LIMITATIONS: None. FINDINGS: MINERALIZATION: Osteopenic HIPS: Right and left hip joints are intact. No joint space narrowing or bulky bony spurring. No rig ht or left proximal femur fracture. PELVIS AND SACRUM: No acute fracture or dislocation. No worrisome bone lesions. PUBIS AND ISCHIUM: Healing fractures of the right superior and inferior pubic ramus are present. The re is bony callus at the fracture sites, more prominent than on CT exam 01/30/2019. However, fracture lines are still evident. This represents delayed union. SOFT TISSUES: No findings. OTHER: No other significant finding. 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 If strong clinical suspicion for f racture, recommend CT or MR. TECHNICAL DOCUMENTATION: JOB ID: [id number] [employer]- All Rights Reserved Reading location - IP/workstation name: [email or web address]
== END ==
LOC: RAD 12:37
PROVIDERS: ATTEND Family Medicine
DX: M80.80XG Other osteoporosis with current pathological fracture, unspecified site, subsequent encounter for fracture with delayed healing (principal)
CPT/HCPCS: 72170

== ENCOUNTER 2019-11-26 09:09 | Emergency (ER) | payer MEDICAID ==
[2019-11-26 09:21] VITALS: BP 165/90
--- NOTE | 2019-11-26 10:01 | ER Document Report ---
ED Flu Like - General Chief Complaint: Flu Symptoms Stated Complaint: COUGH Time Seen by Provider: 11/26/19 09:14 Primary Care Provider: ANABELLA JHA DO [Primary Care Provider] - Follow up as needed Mode of Arrival: Ambulatory Information source: Patient Notes: 54-year-old female past medical history significant for hypertension presents to the emergency room complaining of a cough chills and body aches for the past 3 days. Denies any fevers. Taking Tylenol with some relief. No medications today. No COVID-19 exposure, no recent travel. Patient states she works for [employer] and was sent by her employer before she can return to work. TRAVEL OUTSIDE OF THE [place] IN LAST 30 DAYS: No - Related Data Allergies/Adverse Reactions: No Known Allergies Allergy (Verified 11/26/19 09:28) Home Medications: meloxicam 15mg daily. fosamax 35mg prn Past Medical History - General Information source: Patient - Social History Smoking Status: Never Smoker Chew tobacco use (# tins/day): No Frequency of alcohol use: None Drug Abuse: None Lives with: Family Family History: Reviewed & Not Pertinent Patient has homicidal ideation: No - Past Medical History Cardiac Medical History: Reports: Hx Hypertension Denies: Hx Coronary Artery Disease, Hx Heart Attack Pulmonary Medical History: Denies: Hx Asthma, Hx Bronchitis, Hx COPD, Hx Pneumonia Neurological Medical History: Denies: Hx Cerebrovascular Accident, Hx Seizures Renal/ Medical History: Denies: Hx Peritoneal Dialysis Musculoskeletal Medical History: Reports Hx Arthritis Past Surgical History: Reports: Hx Tonsillectomy - Immunizations Hx Diphtheria, Pertussis, Tetanus Vaccination: Yes Review of Systems - Review of Systems Constitutional: Chills. denies: Fever, Malaise EENT: No symptoms reported Cardiovascular: No symptoms reported Respiratory: Cough. denies: Short of breath, Sputum Gastrointestinal: No symptoms reported Musculoskeletal: No symptoms reported Skin: No symptoms reported Neurological/Psychological: No symptoms reported -: Yes All other systems reviewed and negative Physical Exam - Vital signs Vitals: Temp Pulse Resp BP Pulse Ox 97.7 F 86 16 165/90 H 98 11/26/19 09:17 11/26/19 09:17 11/26/19 09:17 11/26/19 09:17 11/26/19 09:17 - General General appearance: Appears well, Alert In distress: None - HEENT Head: Normocephalic, Atraumatic Eyes: Normal Pupils: PERRL - Respiratory Respiratory status: No respiratory distress Chest status: Nontender Breath sounds: Normal Chest palpation: Normal - Cardiovascular Rhythm: Regular Heart sounds: Normal auscultation Murmur: No - Extremities General upper extremity: Normal inspection, Nontender, Normal color, Normal ROM, Normal temperature General lower extremity: Normal inspection, Nontender, Normal color, Normal ROM, Normal temperature, Normal weight bearing. No: Hudson's sign - Neurological Neuro grossly intact: Yes Cognition: Normal Orientation: AAOx4 Bloom[place]rose Coma Scale Eye Opening: Spontaneous [place] Coma Scale Verbal: Oriented Bloom[place]rose Coma Scale Motor: Obeys Commands Key Coma Scale Total: 15 Speech: Normal Motor strength normal: LUE, RUE, LLE, RLE Sensory: Normal - Skin Skin Temperature: Warm Skin Moisture: Dry Skin Color: Normal Course - Re-evaluation Re-evalutation: 11/26/19 10:23 Patient is afebrile, nontoxic-appearing, reviewed negative chest x-ray results with patient. Counseled patient that with no COVID-19 exposure, no COVID-19 risk factors COVID testing is not recommended at this time. Counseled on viral illness. Supportive therapy. Outpatient follow-up with a primary care physician if not improving in 2 to 3 days. She was given strict return to the emergency room guidelines. She is to return for any new or worsening symptoms. All questions were answered. Patient verbalized understanding and agrees with plan of care. - Vital Signs Vital signs: Temp Pulse Resp BP Pulse Ox 97.7 F 86 16 165/90 H 98 11/26/19 09:17 11/26/19 09:17 11/26/19 09:17 11/26/19 09:17 11/26/19 09:17 Discharge - Discharge Clinical Impression: Viral URI with cough Condition: Stable Disposition: HOME, SELF-CARE Instructions: Upper Respiratory Illness ([facility]), Viral Syndrome ([facility]) Additional Instructions: Supportive therapy. Outpatient follow-up with your primary care physician if not improving in 2 to 3 days. Return for any new or worsening symptoms. Referrals: ANABELLA JHA DO [Primary Care Provider] - Follow up as needed
--- NOTE | 2019-11-26 10:21 | RADIOLOGY REPORT (SQ) ---
EXAM DESCRIPTION: CHEST SINGLE VIEW IMAGES COMPLETED DATE/TIME: 11/26/2019 10:03 am REASON FOR STUDY: cough COMPARISON: 11/09/2018. FINDINGS: One-view chest AP portable upright. No acute findings. Diminished lung volumes. Small hiatal hernia. Stable cardiomediastinal silhouette. No pneumothorax . TECHNICAL DOCUMENTATION: JOB ID: [id number] Reading location - IP/workstation name: [email or web address]
== END 2019-11-26 10:55 | disposition home or self-care (01) ==
LOC: ER 09:09
DX: J06.9 Acute upper respiratory infection, unspecified (principal); M79.10 Myalgia, unspecified site; R68.83 Chills (without fever); I10 Essential (primary) hypertension
CPT/HCPCS: 71045; 99283

== ENCOUNTER 2020-01-12 19:38 | Emergency (ER) | payer MEDICAID ==
[2020-01-12] MEDS ORDERED: ONDANSETRON 4 MG TAB.RAPDIS PO ONE (20:44)
[2020-01-12] MEDS ORDERED: RINGERS SOLUTION,LACTATED 1,000 ML IV ONE (20:45)
--- NOTE | 2020-01-12 20:47 | ER Document Report ---
ED Medical Screen (RME) - General Chief Complaint: Nausea/Vomiting Stated Complaint: VOMITING, HEADACHE Time Seen by Provider: 01/12/20 20:41 Primary Care Provider: ANABELLA JHA DO [Primary Care Provider] - Follow up as needed Mode of Arrival: Wheelchair Information source: Patient Notes: HPI; 54-year-old female presents to the emergency room complaining of nausea and vomiting that started around 3 PM this afternoon after eating a hamburger at [employer]. States she has not been able to tolerate anything p.o. Denies any fevers, no urinary symptoms. Also complaining of a headache which is contributing to all the vomiting. Denies any abdominal pain. PE: Alert and oriented x3. Mild distress noted. Lungs: Clear to auscultation without rales, rhonchi, wheezes. Heart: Regular rate and rhythm without murmurs, rubs, gallops. Unable to do full exam in triage. I have greeted and performed a rapid initial assessment of this patient. A comprehensive ED assessment and evaluation of the patient, analysis of test results and completion of the medical decision making process will be conducted by additional ED providers. I have specifically instructed the patient or family members with the patient to immediately return to any nursing staff should anything change in the patient's condition or with their chief complaint.. TRAVEL OUTSIDE OF THE [place] IN LAST 30 DAYS: No - Related Data Allergies/Adverse Reactions: No Known Allergies Allergy (Verified 11/26/19 09:28) Home Medications: omeprazole, arithritit med, hydrocodone Past Medical History - Past Medical History Cardiac Medical History: Reports: Hx Hypertension Denies: Hx Coronary Artery Disease, Hx Heart Attack Pulmonary Medical History: Denies: Hx Asthma, Hx Bronchitis, Hx COPD, Hx Pneumonia Neurological Medical History: Denies: Hx Cerebrovascular Accident, Hx Seizures Renal/ Medical History: Denies: Hx Peritoneal Dialysis Musculoskeltal Medical History: Reports Hx Arthritis Past Surgical History: Reports: Hx Tonsillectomy - Immunizations Hx Diphtheria, Pertussis, Tetanus Vaccination: Yes Physical Exam - Vital signs Vitals: Temp Pulse Resp BP Pulse Ox 97.5 F 80 18 173/89 H 97 01/12/20 20:14 01/12/20 20:14 01/12/20 20:14 01/12/20 20:14 01/12/20 20:14 Course - Vital Signs Vital signs: Temp Pulse Resp BP Pulse Ox 97.5 F 80 18 173/89 H 97 01/12/20 20:14 01/12/20 20:14 01/12/20 20:14 01/12/20 20:14 01/12/20 20:14 Doctor's Discharge - Discharge Referrals: ANABELLA JHA DO [Primary Care Provider] - Follow up as needed
[2020-01-12 21:32] LABS: ABSOLUTE EOSINOPHILS # (AUTO) 0.1 10^3/uL (0.0-0.6); ABSOLUTE LYMPHOCYTES (AUTO) 1.6 10^3/uL (0.5-4.7); ABSOLUTE MONOCYTES (AUTO) 0.9 10^3/uL (0.1-1.4); ABSOLUTE NEUT (AUTO) 7.9 10^3/uL (1.7-8.2); BASOPHILS % (AUTO) 0.2 % (0-2); HEMATOCRIT 40.2 % (36.0-47.0); HEMOGLOBIN 13.4 g/dL (12.0-15.5); LYMPHOCYTES % (AUTO) 15.1 % (13-45); MEAN CORPUSCULAR HEMOGLOBIN 28.6 pg (27.0-33.4); MEAN CORPUSCULAR HGB CONC 33.2 g/dL (32.0-36.0); MEAN CORPUSCULAR VOLUME 86 fl (80-97); PLATELET COUNT 258 10^3/uL (150-450); RED BLOOD COUNT 4.67 10^6/uL (3.72-5.28); RED CELL DISTRIBUTION WIDTH 14.5 % (11.5-14.0); SEGMENTED NEUTROPHILS % (AUTO) 74.7 % (42-78); TOTAL CELLS COUNTED % (AUTO) 100 %; WHITE BLOOD COUNT 10.5 10^3/uL (4.0-10.5)
[2020-01-12 21:39] LABS: APPEARANCE,URINE CLEAR; BILIRUBIN,URINE NEGATIVE (NEGATIVE); COLOR,URINE YELLOW; GLUCOSE, URINE NEGATIVE (NEGATIVE); KETONES,URINE NEGATIVE (NEGATIVE); LEUKOCYTE ESTERASE,URINE SMALL (NEGATIVE); NITRITE,URINE NEGATIVE (NEGATIVE); PROTEIN,URINE NEGATIVE (NEGATIVE); URINE SPECIFIC GRAVITY 1.019; UROBILINOGEN,URINE NEGATIVE mg/dL (<2.0)
[2020-01-12 21:53] LABS: ALBUMIN 4.5 g/dL (3.5-5.0); ALKALINE PHOSPHATASE 81 U/L (38-126); ANION GAP 10 (5-19); ASPARTATE AMINO TRANSFERASE 29 U/L (14-36); BILIRUBIN,TOTAL 0.3 mg/dL (0.2-1.3); BLOOD UREA NITROGEN 15 mg/dL (7-20); CALCIUM 9.1 mg/dL (8.4-10.2); CARBON DIOXIDE 25 mmol/L (22-30); CHLORIDE 105 mmol/L (98-107); GLUCOSE 123 mg/dL (75-110); POTASSIUM 3.9 mmol/L (3.6-5.0); TOTAL PROTEIN 7.5 g/dL (6.3-8.2)
[2020-01-12] MEDS ORDERED: ONDANSETRON ODT 4 MG TAB (6 TAB/ER DISP) PO PRN (23:31)
[2020-01-12 23:44] VITALS: BP 138/64
--- NOTE | 2020-01-13 00:22 | ER Document Report ---
Entered by ÁNGEL HERNANDEZ SCRIBE 01/12/20 [id number] Acting as scribe for:RAFAELA DE LOS SANTOS IV, MD ED GI/ - General Chief Complaint: Nausea/Vomiting Stated Complaint: VOMITING, HEADACHE Time Seen by Provider: 01/12/20 20:41 Primary Care Provider: ANABELLA JHA DO [Primary Care Provider] - Follow up as needed Mode of Arrival: Wheelchair Information source: Patient Notes: This 54 year old female patient with a history of hypertension presents to the ED today with complaints of nausea/vomiting that started around 1500 this afternoon after eating a hamburger from [employer]. Patient also notes a headache. Denies fever or abdominal pain. TRAVEL OUTSIDE OF THE [place] IN LAST 30 DAYS: No - Related Data Allergies/Adverse Reactions: No Known Allergies Allergy (Verified 11/26/19 09:28) Home Medications: omeprazole, arithritit med, hydrocodone Past Medical History - General Information source: Patient - Social History Smoking Status: Never Smoker Cigarette use (# per day): No Chew tobacco use (# tins/day): No Smoking Education Provided: No Lives with: Spouse/Significant other Family History: Reviewed & Not Pertinent Patient has suicidal ideation: No Patient has homicidal ideation: No - Past Medical History Cardiac Medical History: Reports: Hx Hypertension Musculoskeletal Medical History: Reports Hx Arthritis Past Surgical History: Reports: Hx Tonsillectomy - Immunizations Hx Diphtheria, Pertussis, Tetanus Vaccination: Yes Review of Systems - Review of Systems Constitutional: See HPI. denies: Fever EENT: No symptoms reported Cardiovascular: No symptoms reported Respiratory: No symptoms reported Gastrointestinal: See HPI, Nausea, Vomiting. denies: Abdominal pain Genitourinary: No symptoms reported Female Genitourinary: No symptoms reported Musculoskeletal: No symptoms reported Skin: No symptoms reported Hematologic/Lymphatic: No symptoms reported Neurological/Psychological: See HPI, Headaches -: Yes All other systems reviewed and negative Physical Exam - Vital signs Vitals: Temp Pulse Resp BP Pulse Ox 97.5 F 80 18 173/89 H 97 01/12/20 20:14 01/12/20 20:14 01/12/20 20:14 01/12/20 20:14 01/12/20 20:14 Interpretation: Hypertensive - General General appearance: Appears well, Alert In distress: None - HEENT Head: Normocephalic, Atraumatic Eyes: Normal Pupils: PERRL - Respiratory Respiratory status: No respiratory distress Chest status: Nontender Breath sounds: Normal Chest palpation: Normal - Cardiovascular Rhythm: Regular Heart sounds: Normal auscultation Murmur: No Friction rub: No Gallop: None auscultated - Abdominal Inspection: Normal Distension: No distension Bowel sounds: Normal Tenderness: Nontender - Abdomen soft Organomegaly: No organomegaly - Back Back: Normal, Nontender - Extremities General upper extremity: Normal inspection General lower extremity: Normal inspection - Neurological Neuro grossly intact: Yes Orientation: AAOx4 Key Coma Scale Eye Opening: Spontaneous Key Coma Scale Verbal: Oriented [place] Coma Scale Motor: Obeys Commands [place] Coma Scale Total: 15 - Psychological Associated symptoms: Normal affect, Normal mood - Skin Skin Temperature: Warm Skin Moisture: Dry Skin Color: Normal Course - Re-evaluation Re-evalutation: 01/12/20 23:30 Results of ED MSE discussed with patient. Patient states she is feeling much better since receiving Zofran and IV fluids. Patient states her headache is gone and she is ready to be discharged. All questions were answered prior to discharge. Emergency signs and symptoms, reasons to return to the emergency department discussed with patient. - Vital Signs Vital signs: Temp Pulse Resp BP Pulse Ox 97.5 F 80 18 173/89 H 97 01/12/20 20:14 01/12/20 20:14 01/12/20 20:14 01/12/20 20:14 01/12/20 20:14 - Laboratory Result Diagrams: 01/12/20 20:57 01/12/20 20:57 Laboratory results interpreted by me: 01/12/20 01/12/20 01/12/20 20:57 20:57 20:57 RDW 14.5 H Glucose 123 H Ur Leukocyte Esterase SMALL H Discharge - Discharge Clinical Impression: Acute vomiting, Elevated blood pressure reading Acute headache Qualifiers: Headache type: unspecified Intractability: not intractable Qualified Code(s): R51 - Headache Condition: Stable Disposition: HOME, SELF-CARE Instructions: Antinausea Medication ([facility]), Vomiting ([facility]) Additional Instructions: Return to the Emergency Department without delay if any worse. HOME CARE INSTRUCTIONS & INFORMATION: Thank you for choosing us for your medical needs. We hope you're satisfied with the care you received. After you leave, you must properly care for your problem and, at the same time, observe its progress. Any condition can change. Some illnesses can change rapidly over hours or days. If your condition worsens, return to the Emergency Department or see your physician promptly. ABOUT YOUR X-RAYS AND EKG'S: If you had an EKG or X-rays taken, they have been read by the Emergency Physician. The X-rays and EKG's will also be read by a Radiologist or Fret Saw Operator within 24 hours. If discrepancies are noted, you will be notified by telephone. Please be certain the ED has a correct telephone number & address where you can be reached. Also, realize that some fractures or abnormalities do not show up on initial X-rays. If your symptoms continue, see your physician. ABOUT YOUR LABORATORY TEST: If you had laboratory tests, the results have been reviewed by the Emergency Physician. Some test results (for example cultures) may not be available for several days. You will be contacted if any test result shows you need additional treatment. Please be certain the ED has a correct telephone number and address where you can be reached. ABOUT YOUR MEDICATIONS: You will receive instructions on how to take your medicine on the prescription label you receive. Additional information may be provided by the Pharmacy. If you have questions afterwards, call the ED for cl arification or further instructions. Some prescribed medications may cause drowsiness. Do not perform tasks such as driving a car or operating machinery without consulting your Pharmacist. If you feel you need a refill of pain medication, your condition will need re-evaluation. Please do not call for a refill of any medication. ABOUT YOUR SIGNATURE: Signature of this document acknowledges to followin. Understanding that you received emergency treatment and that you may be released before al medical problems are known or treated. Please be certain the ED has a correct phone number & address where you can be reached. 2. Acknowledgement that you will arrange for follow-up care as recommended. 3. Authorization for the Emergency Physician to provide information to your follow-up Physician in order to maximize your care. AT ANY TIME, IF YOUR SYMPTOMS CHANGE SIGNIFICANTLY OR WORSEN OR YOU DEVELOP NEW SYMPTOMS, RETURN TO THE EMERGENCY DEPARTMENT IMMEDIATELY FOR RE-EVALUATION. OUR GOAL IS TO PROVIDE EXCELLENT MEDICAL CARE! WE HOPE THAT WE HAVE MET YOUR EXPECTATIONS DURING YOUR EMERGENCY DEPARTMENT VISIT AND THAT YOU FEEL YOU HAVE RECEIVED EXCELLENT CARE! Forms: Return to Work Referrals: ABHIJEET,ANABELLA, DO [Primary Care Provider] - Follow up as needed I personally performed the services described in the documentation, reviewed and edited the documentation which was dictated to the scribe in my presence, and it accurately records my words and actions.
== END 2020-01-13 | disposition home or self-care (01) ==
LOC: ER 19:38
DX: R11.2 Nausea with vomiting, unspecified (principal); R51 Headache; I10 Essential (primary) hypertension
CPT/HCPCS: 99284; 96360; 36415; 83690; 85025; 80053; 81001; S0119; J7120

== ENCOUNTER 2020-05-19 17:15 | Emergency (ER) | payer MEDICAID ==
[2020-05-19 17:30] VITALS: BP 186/102
[2020-05-19] MEDS ORDERED: HYDROCODONE/ACETAMINOPHEN 5-325 MG TABLET PO ONE ×2 (17:37→18:53)
--- NOTE | 2020-05-19 17:38 | ER Document Report ---
ED Medical Screen (RME) - General Stated Complaint: FALL/ WRIST PAIN, HEAD PAIN Time Seen by Provider: 05/19/20 17:34 Primary Care Provider: ANABELLA JHA DO [Primary Care Provider] - Follow up as needed Mode of Arrival: Wheelchair Information source: Patient Notes: HPI; 54-year-old female with no previous medical problems presents to the emergency room after a fall at home just prior to arrival. Patient states she was trying to unlock her door when her puri got stuck causing her to lose her balance and falling down 6 stairs. States she landed on the right side of her face on concrete and injured both her wrists while trying to prevent the fall. Denies any loss of consciousness. Not currently on any blood thinners. No medications prior to arrival. Tetanus is up-to-date. PE: Alert and oriented x3. No walter signs, no raccoon eyes. Right-sided facial abrasions. Ecchymosis and swelling noted to the right cheek. It is tender to palpation. Bilateral wrists are tender to palpation moderate swelling and deformities noted bilaterally. Painful range of motion with any movement to her bilateral wrists. Lungs: Are clear to auscultation without rales, rhonchi, wheezes. Heart: Regular rate rhythm without murmurs, rubs, gallops. I have greeted and performed a rapid initial assessment of this patient. A comprehensive ED assessment and evaluation of the patient, analysis of test results and completion of the medical decision making process will be conducted by additional ED providers. I have specifically instructed the patient or family members with the patient to immediately return to any nursing staff should anything change in the patient's condition or with their chief complaint. TRAVEL OUTSIDE OF THE [place] IN LAST 30 DAYS: No - Related Data Allergies/Adverse Reactions: No Known Allergies Allergy (Verified 11/26/19 09:28) Past Medical History - Past Medical History Cardiac Medical History: Reports: Hx Hypertension Denies: Hx Coronary Artery Disease, Hx Heart Attack Pulmonary Medical History: Denies: Hx Asthma, Hx Bronchitis, Hx COPD, Hx Pneumonia Neurological Medical History: Denies: Hx Cerebrovascular Accident, Hx Seizures Renal/ Medical History: Denies: Hx Peritoneal Dialysis Musculoskeltal Medical History: Reports Hx Arthritis Past Surgical History: Reports: Hx Tonsillectomy - Immunizations Hx Diphtheria, Pertussis, Tetanus Vaccination: Yes Physical Exam - Vital signs Vitals: Temp Pulse Resp BP Pulse Ox 97.5 F 80 18 186/102 H 100 05/19/20 17:27 05/19/20 17:27 05/19/20 17:27 05/19/20 17:27 05/19/20 17:27 Course - Vital Signs Vital signs: Temp Pulse Resp BP Pulse Ox 97.5 F 80 18 186/102 H 100 05/19/20 17:27 05/19/20 17:27 05/19/20 17:27 05/19/20 17:27 05/19/20 17:27 Doctor's Discharge - Discharge Referrals: ANABELLA JHA DO [Primary Care Provider] - Follow up as needed
--- NOTE | 2020-05-19 18:16 | RADIOLOGY REPORT (SQ) ---
EXAM DESCRIPTION: WRIST BILATERAL 3 VIEWS IMAGES COMPLETED DATE/TIME: 05/19/2020 5:54 pm REASON FOR STUDY: trauma COMPARISON: None. NUMBER OF VIEWS: Six views. TECHNIQUE: AP, lateral, and oblique radiographic images acquired of the right and left wrist. LIMITATIONS: None. FINDINGS: MINERALIZATION: Normal. BONES: There is an impacted comminuted fracture of the left distal radius demonstrating intra-articul ar extension with significant gapping of the articular surface. Additionally, there is a mildly impa cted comminuted fracture of the right distal radius demonstrating marginal intra-articular extension. Nondisplaced ulnar styloid fractures are seen bilaterally. SOFT TISSUES: Circumferential soft tissue swelling is seen of the wrists. OTHER: No other significant finding. IMPRESSION: Impacted comminuted fractures of bilateral distal radii demonstrating significant intraa rticular extension on the left with marginal intraarticular extension on the right. Associated nondi splaced ulnar solid fractures bilaterally. TECHNICAL DOCUMENTATION: JOB ID: [id number] 2010 [employer]- All Rights Reserved Reading location - IP/workstation name: [email or web address]
--- NOTE | 2020-05-19 18:24 | RADIOLOGY REPORT (SQ) ---
EXAM DESCRIPTION: CT CERVICAL SPINE WITHOUT IMAGES COMPLETED DATE/TIME: 05/19/2020 6:04 pm REASON FOR STUDY: trauma COMPARISON: None. TECHNIQUE: Axial images acquired through the cervical spine without intravenous contrast. Images re viewed with lung, soft tissue and bone windows. Reconstructed coronal and sagittal MPR images review ed. Images stored on PACS. All CT scanners at this facility use dose modulation, iterative reconstruction, and/or weight based d osing when appropriate to reduce radiation dose to as low as reasonably achievable (ALARA). [facility]: Dose Right [facility]: CareDose [facility]: Dose Right [facility]: Teradose 4D [facility]: [employer] RADIATION DOSE: CT Rad equipment meets quality standard of care and radiation dose reduction techniq ues were employed. CTDIvol: 16.2 mGy. DLP: 330 mGy-cm. mGy. LIMITATIONS: None. FINDINGS: ALIGNMENT: Anatomic. MINERALIZATION: Normal. VERTEBRAL BODIES: No fractures or dislocation. Small marginal osteophytes are demonstrated. DISCS: Intervertebral disc heights appear largely preserved. FACETS, LATERAL MASSES, POSTERIOR ELEMENTS: Facet arthropathy. No fractures. No dislocation. No ac nola findings. HARDWARE: None in the spine. VISUALIZED RIBS: No fractures. LUNG APICES AND SOFT TISSUES: No significant or acute findings. OTHER: No other significant finding. IMPRESSION: No evidence of acute osseous injury. Background of mild spondylotic changes. TECHNICAL DOCUMENTATION: JOB ID: [id number] Quality ID # [id number]: Final reports with documentation of one or more dose reduction techniques (e.g., Au tomated exposure control, adjustment of the mA and/or kV according to patient size, use of iterative reconstruction technique) 2010 [employer]- All Rights Reserved Reading location - IP/workstation name: [email or web address]
--- NOTE | 2020-05-19 18:33 | RADIOLOGY REPORT (SQ) ---
EXAM DESCRIPTION: CT FACIAL AREA WITHOUT IMAGES COMPLETED DATE/TIME: 05/19/2020 6:04 pm REASON FOR STUDY: trauma COMPARISON: None. TECHNIQUE: Noncontrasted images through the facial bones and orbits windowed for bone and soft tissu e. Additional coronal and sagittal reconstructed images reviewed. All images stored on PACS. All CT scanners at this facility use dose modulation, iterative reconstruction, and/or weight based d osing when appropriate to reduce radiation dose to as low as reasonably achievable (ALARA). [facility]: Dose Right [facility]: CareDose [facility]: Dose Right [facility]: Teradose 4D [facility]: [employer] RADIATION DOSE: CT Rad equipment meets quality standard of care and radiation dose reduction techniq ues were employed. CTDIvol: 30.4 mGy. DLP: 655 mGy-cm. mGy. LIMITATIONS: None. FINDINGS: FACIAL BONES: There is a very subtle nondisplaced fracture involving the anterior wall of the right maxillary sinus which he appears to extend into the distal infra orbital foramen on axial i mages 37 through 39. Levin images were saved to this examination demonstrating these subtle findings. ORBITS: Intact. No fracture. Symmetric intact globes and retroorbital soft tissues. PARANASAL SINUSES: Clear. No significant mucosal thickening, mass or fluid. No nasal polyps. Maxill venus sinus outlets are patent. SOFT TISSUES: Soft tissue contusion is seen overlying the right zygoma. INFERIOR BRAIN: Limited view. No acute findings. OTHER: No other significant finding. IMPRESSION: Right pre zygomatic soft tissue contusion with very subtle underlying nondisplaced maxil sukumar fractures as detailed above. TECHNICAL DOCUMENTATION: JOB ID: [id number] Quality ID # [id number]: Final reports with documentation of one or more dose reduction techniques (e.g., Au tomated exposure control, adjustment of the mA and/or kV according to patient size, use of iterative reconstruction technique) 2010 [employer]- All Rights Reserved Reading location - IP/workstation name: [email or web address]
--- NOTE | 2020-05-19 18:43 | ER Document Report ---
ED Fall - General Chief Complaint: Fall Injury Stated Complaint: FALL/ WRIST PAIN, HEAD PAIN Time Seen by Provider: 05/19/20 17:34 Primary Care Provider: ANABELLA JHA DO [Primary Care Provider] - Follow up as needed Mode of Arrival: Wheelchair Information source: Patient Notes: CHIEF COMPLAINT: Bilateral wrist injury, facial injury HPI: 54-year-old female presenting for injury sustained in a fall that was mechanical in nature. She was trying to get a puri out of a door that was stuck, slipped and fell backwards down 6 stairs. Did strike her right cheek on the ground no loss of consciousness. Complains of facial pain but no global headache. Denies neck pain. Denies chest pain hip pain lower extremity injuries. Denies abdominal pain. Denies thoracic or lumbar back injuries. Complains of bilateral wrist pain and injury. ROS: See HPI - all other systems were reviewed and are otherwise negative Constitutional: no fever Eyes: no drainage, no blurred vision ENT: no runny nose, no sore throat, positive right cheek pain Cardiovascular: no chest pain Resp: no SOB, no cough GI: no vomiting, no diarrhea, no abdominal pain : no dysuria Integumentary: no rash Allergy: no hives Musculoskeletal: + extremity pain or swelling Neurological: no numbness/tingling, no weakness MEDICATIONS: I agree with the patient medications as charted by the RN. ALLERGIES: I agree with the allergies as charted by the RN. PAST MEDICAL HISTORY/PAST SURGICAL HISTORY: Reviewed and agree as charted by RN. SOCIAL HISTORY: Reviewed and agree as charted by RN. FAMILY HISTORY: No significant familial comorbid conditions directly related to patient complaint EXAM: Reviewed vital signs as charted by RN. CONSTITUTIONAL: Alert and oriented and responds appropriately to questions. Well-appearing; well-nourished HEAD: Normocephalic; atraumatic EYES: PERRL; Conjunctivae clear, sclerae non-icteric. No entrapment, extraocular movements are intact ENT: normal nose; no rhinorrhea; moist mucous membranes; pharynx without lesions noted, no uvula edema or deviation, no tonsillar hypertrophy, phonation normal. There is soft tissue swelling with bruising to the right zygomatic region. NECK: Supple without meningismus; non-tender; no cervical lymphadenopathy, no masses CARD: RRR; no murmurs, no clicks, no rubs, no gallops; symmetric distal pulses RESP: Normal chest excursion without splinting or tachypnea; breath sounds clear and equal bilaterally; no wheezes, no rhonchi, no rales, pulse oximetry ABD/GI: Normal bowel sounds; non-distended; soft, non-tender, no rebound, no guarding; no palpable organomegaly or masses. BACK: The back appears normal and is non-tender to palpation, there is no CVA tenderness EXT: Some soft tissue swelling and bruising over the bilateral distal radius regions. Limited flexion extension of the bilateral wrist secondary to pain. Sensation intact in the fingertips to touch with capillary refill less than 3 seconds. She is able to flex and extend the fingers of the right and left hands as well as abduct the thumbs. Radial and ulnar pulses are present in the bilateral wrists SKIN: Normal color for age and race; warm; dry; good turgor; no acute lesions noted NEURO: Motor and sensory function intact PSYCH: The patient's mood and manner are appropriate. Grooming and personal hygiene are appropriate. MDM: 54-year-old female bilateral wrist fractures from mechanical fall also with a maxillary fracture that is nondisplaced. There is no visual entrapment. I spoke with Dr. Jade orthopedics he will look at the x-rays and call me back as far as whether patient needs reduction at all. Patient will likely need ENT follow-up for the maxillary fracture. Will place her on Augmentin. Pain medication. TRAVEL OUTSIDE OF THE [place] IN LAST 30 DAYS: No - Related data Allergies/Adverse Reactions: No Known Allergies Allergy (Verified 11/26/19 09:28) Past Medical History - General Information source: Patient - Social History Smoking Status: Never Smoker Chew tobacco use (# tins/day): No Frequency of alcohol use: None Drug Abuse: None Family History: Reviewed & Not Pertinent Patient has homicidal ideation: No - Past Medical History Cardiac Medical History: Reports: Hx Hypertension Denies: Hx Coronary Artery Disease, Hx Heart Attack Pulmonary Medical History: Denies: Hx Asthma, Hx Bronchitis, Hx COPD, Hx Pneumonia Neurological Medical History: Denies: Hx Cerebrovascular Accident, Hx Seizures Renal/ Medical History: Denies: Hx Peritoneal Dialysis Musculoskeletal Medical History: Reports Hx Arthritis Past Surgical History: Reports: Hx Tonsillectomy - Immunizations Hx Diphtheria, Pertussis, Tetanus Vaccination: Yes Physical Exam - Vital signs Vitals: Temp Pulse Resp BP Pulse Ox 97.5 F 80 18 186/102 H 100 05/19/20 17:27 05/19/20 17:27 05/19/20 17:27 05/19/20 17:27 05/19/20 17:27 Course - Re-evaluation Re-evalutation: 05/19/20 19:[address] Driver. - Vital Signs Vital signs: Temp Pulse Resp BP Pulse Ox 97.5 F 80 18 186/102 H 100 05/19/20 17:27 05/19/20 17:27 05/19/20 17:27 05/19/20 17:27 05/19/20 17:27 Procedures - Immobilization Right Wrist Time completed: 19:30 Pre-Proc Neuro Vasc Exam: Normal Immobilizer type: Sugar tong Performed by: PCT Post-Proc Neuro Vasc Exam: Normal, Unchanged from pre-exam Alignment checked and good: Yes - flexion at wrist Left Wrist Time completed: 19:30 Pre-Proc Neuro Vasc Exam: Normal Immobilizer type: Sugar tong Performed by: PCT Post-Proc Neuro Vasc Exam: Normal, Unchanged from pre-exam Alignment checked and good: Yes - flexion at wrist Discharge - Discharge Clinical Impression: Fall down stairs Qualifiers: Encounter type: initial encounter Qualified Code(s): W10.8XXA - Fall (on) (from) other stairs and steps, initial encounter Wrist fracture, bilateral Qualifiers: Encounter type: initial encounter Fracture type: closed Qualified Code(s): S62.101A - Fracture of unspecified carpal bone, right wrist, initial encounter for closed fracture; S62.102A - Fracture of unspecified carpal bone, left wrist, initial encounter for closed fracture Maxillary fracture Qualifiers: Encounter type: initial encounter Fracture type: closed Laterality: right Qualified Code(s): S02.40CA - Maxillary fracture, right side, initial encounter for closed fracture Condition: Stable Disposition: HOME, SELF-CARE Instructions: Splint Precautions ([facility]) Additional Instructions: 1. splint for comfort 2. medicines for pain as prescribed, no driving on narcotics 3. ice the wrists three times daily for swelling for 10 minutes at a time, do not place ice directly on skin 4. follow up with orthopedics for further evaluation and treatment, call for appt. 5. It was also noted that you have a fracture of the facial bone. Follow-up with ENT for further evaluation and treatment take the Augmentin as prescribed Prescriptions: Amoxicillin/Potassium Clav [Augmentin 875-125 Tablet] 1 tab PO BID #14 tablet Oxycodone HCl/Acetaminophen [Percocet 5-325 mg Tablet] 1 tab PO Q4H PRN #15 tab PRN Reason: Referrals: ANABELLA JHA DO [Primary Care Provider] - Follow up as needed KADEEM JADE JR, DO [ACTIVE PROVISIONAL STAFF] - Follow up as needed MAYRA RUSSELL DO [ASSOCIATE] - Follow up as needed
[2020-05-19] MEDS ORDERED: AMOXICILLIN TR/POT CLAVULANATE 875-125 MG TAB PO ONE (18:53)
== END 2020-05-19 19:54 | disposition home or self-care (01) ==
LOC: ER 17:15
DX: S62.102A Fracture of unspecified carpal bone, left wrist, initial encounter for closed fracture (principal); S62.101A Fracture of unspecified carpal bone, right wrist, initial encounter for closed fracture; S52.592A Other fractures of lower end of left radius, initial encounter for closed fracture; S52.591A Other fractures of lower end of right radius, initial encounter for closed fracture; S02.40CA Maxillary fracture, right side, initial encounter for closed fracture; W10.8XXA Fall (on) (from) other stairs and steps, initial encounter; Y93.89 Activity, other specified; Y92.009 Unspecified place in unspecified non-institutional (private) residence as the place of occurrence of the external cause; I10 Essential (primary) hypertension
CPT/HCPCS: 99284; 73110; 70486; 72125; 29125; J3490

== ENCOUNTER 2020-05-24 09:43 | Day surgery (SDC) | payer MEDICAID ==
[2020-05-21 13:10] LABS: APPEARANCE,URINE CLEAR; BILIRUBIN,URINE NEGATIVE (NEGATIVE); COLOR,URINE YELLOW; GLUCOSE, URINE NEGATIVE (NEGATIVE); KETONES,URINE NEGATIVE (NEGATIVE); LEUKOCYTE ESTERASE,URINE MODERATE (NEGATIVE); NITRITE,URINE NEGATIVE (NEGATIVE); PROTEIN,URINE NEGATIVE (NEGATIVE); URINE SPECIFIC GRAVITY 1.013; UROBILINOGEN,URINE NEGATIVE mg/dL (<2.0)
[2020-05-21 13:11] LABS: HEMATOCRIT 39.3 % (36.0-47.0); HEMOGLOBIN 13.3 g/dL (12.0-15.5); MEAN CORPUSCULAR HEMOGLOBIN 29.1 pg (27.0-33.4); MEAN CORPUSCULAR HGB CONC 33.7 g/dL (32.0-36.0); MEAN CORPUSCULAR VOLUME 86 fl (80-97); PLATELET COUNT 266 10^3/uL (150-450); RED BLOOD COUNT 4.56 10^6/uL (3.72-5.28); RED CELL DISTRIBUTION WIDTH 13.6 % (11.5-14.0); WHITE BLOOD COUNT 6.1 10^3/uL (4.0-10.5)
[2020-05-21 13:42] LABS: ANION GAP 10 (5-19); BLOOD UREA NITROGEN 11 mg/dL (7-20); CALCIUM 9.5 mg/dL (8.4-10.2); CARBON DIOXIDE 26 mmol/L (22-30); CHLORIDE 105 mmol/L (98-107); GLUCOSE 95 mg/dL (75-110); POTASSIUM 4.6 mmol/L (3.6-5.0)
--- NOTE | 2020-05-21 15:19 | EKG REPORT ---
SEVERITY:- NORMAL ECG - SINUS RHYTHM : Confirmed by: Ame Shields MD 21-May-2020 15:18:37
--- NOTE | 2020-05-22 09:41 | RADIOLOGY REPORT (SQ) ---
EXAM DESCRIPTION: CHEST PA/LATERAL IMAGES COMPLETED DATE/TIME: 05/21/2020 12:25 pm REASON FOR STUDY: PRE-OP COMPARISON: 11/26/2019 EXAM PARAMETERS: NUMBER OF VIEWS: two views TECHNIQUE: Digital Frontal and Lateral radiographic views of the chest acquired. RADIATION DOSE: NA LIMITATIONS: none FINDINGS: LUNGS AND PLEURA: No opacities, masses or pneumothorax. No pleural effusion. MEDIASTINUM AND HILAR STRUCTURES: No masses or contour abnormalities. HEART AND VASCULAR STRUCTURES: Heart normal size. No evidence for failure. BONES: No acute findings. HARDWARE: None in the chest. OTHER: No other significant finding. IMPRESSION: NO SIGNIFICANT RADIOGRAPHIC FINDING IN THE CHEST. TECHNICAL DOCUMENTATION: JOB ID: [id number] 2010 [employer]- All Rights Reserved Reading location - IP/workstation name: [email or web address]
[~2020-05-24 09:43] MED LIST: CEFAZOLIN 2 GM/D5W RTU 2 GM/50 ML RTUPB IV PRN; DEXAMETHASONE SOD PHOSPHATE INJ 4 MG/1 ML VIAL ONE; FENTANYL CITRATE INJ/PF 100 MCG/2 ML AMPUL ONE; LACTATED RINGERS 1000 ML IV PRN; LIDOCAINE 0.5% INJ-PF (5 MG/ML) 50 ML SDV SUBCUT PRN; MIDAZOLAM 2 MG/2 ML INJ ONE; ONDANSETRON HCL INJ/PF 4 MG/2 ML SDV ONE; PROPOFOL INJ 200 MG/20 ML VIAL IV ONE; SUCCINYLCHOLINE CHLORIDE INJ 200 MG/10 ML VIAL ONE
[2020-05-24] MEDS ORDERED: CEFAZOLIN 2 GM/D5W RTU 2 GM/50 ML RTUPB IV ONE (10:06)
[2020-05-24] MEDS ORDERED: BUPIVACAINE HCL 0.5 % INJ/PF 30 ML SDV ONE (11:48)
[2020-05-24] MEDS ORDERED: LABETALOL HCL INJ 20 MG/4 ML DISP.SYRIN IV ONE ×2 (11:55→12:30)
[2020-05-24] MEDS ORDERED: MORPHINE SULFATE 10 MG/ML INJ IV PRN ×2 (12:47→15:14)
[2020-05-24] MEDS ORDERED: FENTANYL CITRATE INJ/PF 100 MCG/2 ML AMPUL IV PRN ×3 (12:47)
[2020-05-24] MEDS ORDERED: PROMETHAZINE HCL INJ 25 MG/1 ML VIAL IV PRN ×2 (12:47)
[2020-05-24] MEDS ORDERED: ONDANSETRON HCL INJ/PF 4 MG/2 ML SDV IV PRN ×2 (12:47→15:14)
[2020-05-24] MEDS ORDERED: DIPHENHYDRAMINE HCL 50 MG/ML VIAL IV PRN (12:47)
[2020-05-24] MEDS ORDERED: MEPERIDINE HCL/PF INJ 25 MG/1 ML DISP.SYRIN IV PRN (12:47)
[2020-05-24] MEDS ORDERED: OXYCODONE-ACETAMINOPHEN 5-325 MG TABLET PO PRN (15:14)
--- NOTE | 2020-05-24 15:14 | Discharge Summary ---
Discharge Summary (SDC) - Discharge Final Diagnosis: Bilateral distal radius fractures Date of Surgery: 05/24/20 Discharge Date: 05/24/20 Condition: Good Treatment or Instructions: Schedule Follow Up w/ Dr. Lakhwinder Holloway @ [facility] for Surgery to be seen in 10-14 days or as scheduled [place]: [place]: [place]: Ice and elevate May begin vitamin C 500 mg for the next 50 days Keep splint clean/dry/intact, do not remove. If your fingers become numb please unwrap the Paresh wrap but leave the splint in place, if the sensation does not return within 30 minutes please return to the emergency department. May begin finger range of motion attempting to make full fist. Please use ibuprofen (Motrin or Advil) 600-800 mg every 8 hours as needed for pa in or fever DO NOT TAKE w/ TORADOL may use once TORADOL complete. You may also use acetaminophen (Tylenol) 1000 mg every 4-6 hours as needed for pain or fever. Please be aware that many medications contain acetaminophen, do not exceed a total of 1000 mg of acetaminophen every 6 hours. If ibuprofen and acetaminophen are not sufficient for your pain you may take the Percocet/Logan. Please be aware that the Percocet/Logan does contain Tylenol. Stool softener of choice when on pain medication. USE OF VZIE-GOJ-CMLZLKS IBUPROFEN: Ibuprofen (Advil, Nuprin, Medipren, Motrin IB) is a medication for fever and pain control. In addition, it has anti- inflammatory effects which may be beneficial, especially in the treatment of injuries. It's best to take ibuprofen with food. Persons with ulcer disease or allergy to aspirin should notify their physician of this before taking ibuprofen. Ibuprofen can be given every four to six hours, for a total of four doses daily. Age Pain or fever dose Antiinflammatory dose 6-8 yr 200 mg (1 tab) 200 mg (1 tab) 9-11 yr 200 mg (1 tab) 200-400 mg (1-2 tab) 11-14 yr 200-400 mg (1-2 tab) 400 mg (2 tab) 15-adult 400 mg (2 tab) 600 mg (3 tab) ORAL NARCOTIC MEDICATION: You have been given a prescription for pain control. This medication is a narcotic. It's best taken with food, as nausea can result if taken on an empty stomach. Don't operate machinery or drive within six hours of taking this medication. Do not combine this medicine with alcohol, or with any medication which can cause sedation (such as cold tablets or sleeping pills) unless you get permission from the physician. Narcotics tend to cause constipation. If possible, drink plenty of fluids and eat a diet high in fiber and fruits. Please be aware that prescription narcotics also have the potential for abuse. People become addicted to these medications because of the general sense of wellbeing that they induce. This feeling along with a significant reduction in tension, anxiety, and aggression provides a stimulating seductive quality to these drugs. Once your pain is under control, we encourage you to discard your unused narcotics. Referrals: ANABELLA JHA DO [Primary Care Provider] - Respiratory Treatments at Home: Deep Breathing/Coughing, Incentive Spirometer Discharge Activity: No Lifting Over 10 Pounds, No Lifting/Push/Pulling Report the Following to Your Physician Immediately: Fever over 101 Degrees, Unusual Bleeding, Redness, Swelling, Warmth, Increased Soreness
--- NOTE | 2020-05-24 15:15 | Operative Report ---
Operative Report DATE OF SURGERY: 05/24/20 PREOPERATIVE DIAGNOSIS: 3 part intra-articular left distal radius. Extra-artic ular right distal radius POSTOPERATIVE DIAGNOSIS: Same OPERATION: 1. ORIF greater than 3 part intra-articular left distal radius. 2. ORIF extra-articular right distal radius SURGEON: RAYMUNDO HORTON ANESTHESIA: GA COMPLICATIONS: None ESTIMATED BLOOD LOSS: Minimal PROCEDURE: Indication for above procedure: 54-year-old female who sustained a fall onto her outstretched right and left wrist. Patient had radiographs demonstrating bilateral distal radius fractures with intra-articular fracture on the left. Patient was placed in a splint in the emergency room. She subsequently followed up with me at which point we di scussed treatment options given the severity of her fracture on the left I thought she needed open reduction to fixation intraoperatively we will obtain fluoroscopy of the right wrist and consider open reduction to fixation versus closed reduction and casting. Risk and benefits of procedure were explained patient verbalized understanding consented for surgery procedure. Procedure In Detail: Patient was seen and evaluated in the preoperative holding area. The bilateral upper extremity was initialized and marked. Patient received 2g of Ancef IV for bacterial prophylaxis. Patient was taken back to the operative room where transferred to the operative table and placed under general anesthesia. Once they were adequately anesthetized and a nonsterile tourniquet was placed on his upper extremity. A surgical team debriefing was performed ensuring all instrumentation was available, the surgical procedure was discussed with possible concerns reviewed. The left upper extremity was prepped with chlorhexidine and alcohol and draped in a sterile fashion. A timeout was done identifying correct patient, procedure and extremity everyone in attendance agree with this and verbalized no concerns.The extremity was exsanguinated the tourniquet was inflated to 250 mmHg. A longitudinal skin incision was made via a volar approach of Hardik along the FCR tendon sheath. The FCR tendon sheath was opened and the FCR retracted ulnarly, the palmar cutaneous branch of the median nerve was identified and protected throughout the entirety of the case. The radial artery was identified and retracted radially. Blunt dissection was performed to the FPL which was carefully sweeped ulnarly. This brought me to the pronator quadratus which was elevated off of the distal radius via sharp dissection with a 15 blade to allow later repair. The fracture was then identified and a reduction maneuver was performed utilizing a [place] elevator. Provisional K wire was placed maintaining reduction. A narrow Acumed 3 hole volar distal radius plate was placed into position and fixated with a K wire distally x2. AP and lateral radiographs were then obtained demonstrating appropriate placement of the plate and acceptable reduction of the fracture. Using a reduction tenaculum I was able to bring the plate down to bone distally. After drilling distally a cortical screw was used bringing the plate further down to bone, avoiding any liftoff of the plate from the volar cortex that could cause flexor tendon irritation post-operativley. Drilling the near cortex and to but not thru the far cortex a locking screw was then placed in the remaining hole the previous cortex screw was removed and replaced with a locking screw. Given the coronal split decision was made to place a frag lock suture. The drill hole was then drilled bicortically and the overdrill placed. The small peg for the frag lock was then inserted. K wire was placed from anterior to posterior. [employer] skin incision was made dorsally. The fourth dorsal compartment was partially opened and the extensor tendons retracted. The frag lock dorsal piece was then secured into position. C arm radiographs were obtained demonstrating acceptable reduction of the articular 3 fragments. Two additional screws were placed into the styloid giving further stability to the radial styloid piece. AP and lateral radius were then done confirming appropriate placement of plate with no evidence of penetration intra- articular or within the DRUJ. I then turned my attention to the proximal screws. I drilled bicortically bringing the plate down to bone with a cortex screw. The remaining 2 holes proximally were drilled bicortically placing the appropriate size cortex in the proximal most hole and a locking screw in the distal shaft hole. AP and lateral radiographs were done confirming appropriate placement of the plate and reduction of the fracture there was holiness of radial height, radial inclination and volar tilt. No evidence of dorsal screw prominence or intra-articular penetration of the DRUJ or radiocarpal joint. The wound was copiously irrigated with normal saline. There was no evidence of DRUJ instability on examination, Negative Olmedo's test, No crepitus with range of motion at the radiocarpal joint or DRUJ. The pronator quadratus was closed with interrupted 3-0 Monocryl suture. Tourniquet was then deflated, bleeding was controlled with bipolar. Subcutaneous tissues were closed with interrupted 4-0 Monocryl suture. The skin was closed with a running subcuticular 4-0 Monocryl suture which was reinforced with Dermabond and Steri-Strips. 20 mL of 0.5% Marcaine were injected for postoperative pain control. The tourniquet was then deflated. Was dressed with sterile 4 x 4's and webril. The right upper extremity was prepped with chlorhexidine and alcohol and draped in a sterile fashion. A timeout was done identifying correct patient, procedure and extremity everyone in attendance agree with this and verbalized no concerns.The extremity was exsanguinated the tourniquet was inflated to 250 mmHg. A longitudinal skin incision was made via a volar approach of Hardik along the FCR tendon sheath. The FCR tendon sheath was opened and the FCR retracted ulnarly, the palmar cutaneous branch of the median nerve was identified and protected throughout the entirety of the case. The radial artery was identified and retracted radially. Blunt dissection was performed to the FPL which was carefully sweeped ulnarly. This brought me to the pronator quadratus which was elevated off of the distal radius via sharp dissection with a 15 blade to allow later repair. The fracture was then identified and a reduction maneuver was performed utilizing a [place] elevator. Acceptable reduction was then obtained and a Acumed 3 hole volar distal radius plate was placed into position and fixated with a K wire distally x2. AP and lateral radiographs were then obtained demonstrating appropriate placement of the plate and acceptable reduction of the fracture. Using a reduction tenaculum I was able to bring the plate down to bone distally. After drilling distally a cortical screw was used bringing the plate further down to bone, avoiding any liftoff of the plate from the volar cortex that could cause flexor tendon irritation post-operativley. Drilling the near cortex and to but not thru the far cortex a locking screw was then placed in the remaining holes. The previous cortex screw was removed and replaced with a locking screw. Two additional screws were placed into the styloid giving further stability to the radial styloid piece. AP and lateral radius were then done confirming appropriate placement of plate with no evidence of penetration intra-articular or within the DRUJ. I then turned my attention to the proximal screws. I drilled bicortically bringing the plate down to bone with a cortex screw. The remaining 2 holes proximally were drilled bicortically placing the appropriate size cortex in the proximal most hole and a locking screw in the distal shaft hole. AP and lateral radiographs were done confirming appropriate placement of the plate and reduction of the fracture there was holiness of radial height, radial inclination and volar tilt. No evidence of dorsal screw prominence or intra-articular penetration of the DRUJ or radiocarpal joint. The wound was copiously irrigated with normal saline. There was no evidence of DRUJ instability on examination, Negative Olmedo's test, No crepitus with range of motion at the radiocarpal joint or DRUJ. The pronator quadratus was closed with interrupted 3-0 Monocryl suture. Subcutaneous tissues were closed with interrupted 4-0 Monocryl suture. The skin was closed with a running subcuticular 4-0 Monocryl suture which was reinforced with Dermabond and Steri- Strips. 20 mL of 0.5% Marcaine were injected for postoperative pain control. The tourniquet was then deflated. Was dressed with sterile 4 x 4's and right was placed in a well-padded volar splint, left was placed in a sugar tong splint. Sponge counts, instrument counts and needle counts were correct. There was no intraoperative complications patient tolerated procedure well stable to PACU. Postoperative plan: Patient will be switched to a removal brace at first postoperative followup visit and begin range of motion. Patient is encouraged to start vitamin C 500 mg daily for 51 days. Will obtain radiographs at followup of the wrist.
--- NOTE | 2020-05-24 15:34 | RADIOLOGY REPORT (SQ) ---
EXAM DESCRIPTION: WRIST LEFT 2 VIEWS IMAGES COMPLETED DATE/TIME: 05/24/2020 3:22 pm REASON FOR STUDY: ORIF LEFT WRIST ASSISTED WITH FLUORO IN OR S52.531A COLLES' FRACTURE OF RIGHT RAD IUS, INIT FOR CLOS FX S52.532A COLLES' FRACTURE OF LEFT RADIUS, INIT FOR CLOS FX COMPARISON: None. FLUOROSCOPY TIME: 1 minutes 32 seconds Spot images saved to PACS. TECHNIQUE: Intra-operative images acquired during surgical procedure to evaluate progress. NUMBER OF IMAGES: 3 LIMITATIONS: None. FINDINGS: Fluoroscopy was provided for intraoperative procedure. Please refer to the operative repo rt further discussion. Fracture of the radius and ulnar styloid are again noted. IMPRESSION: IMAGE(S) OBTAINED DURING PROCEDURE. COMMENT: Quality ID [id number]: Final reports for procedures using fluoroscopy that document radiation exp osure indices, or exposure time and number of fluorographic images (if radiation exposure indices are not available) Please consult full operative report of the attending physician for description of the procedure. TECHNICAL DOCUMENTATION: JOB ID: [id number] 2010 [employer]- All Rights Reserved Reading location - IP/workstation name: [email or web address]
--- NOTE | 2020-05-24 15:34 | RADIOLOGY REPORT (SQ) ---
EXAM DESCRIPTION: NO CHG FLUORO COMPLETE DATE/TIME: 05/24/2020 3:22 pm REASON FOR STUDY: ORIF LEFT WRIST ASSISTED WITH FLUORO IN OR S52.531A COLLES' FRACTURE OF RIGHT RAD IUS, INIT FOR CLOS FX S52.532A COLLES' FRACTURE OF LEFT RADIUS, INIT FOR CLOS FX FINDINGS: Please see combined report for performance of procedure and radiologic supervision and int erpretation. IMPRESSION: Please see combined report for performance of procedure and radiologic supervision and i nterpretation. Reading location - IP/workstation name: [email or web address]
--- NOTE | 2020-05-24 15:35 | RADIOLOGY REPORT (SQ) ---
EXAM DESCRIPTION: WRIST RIGHT 2 VIEWS; NO CHG FLUORO IMAGES COMPLETED DATE/TIME: 05/24/2020 3:26 pm; 05/24/2020 3:25 pm REASON FOR STUDY: ORIF RIGHT WRIST ASSISTED WITH FLUORO IN OR S52.531A COLLES' FRACTURE OF RIGHT RA DIUS, INIT FOR CLOS FX S52.532A COLLES' FRACTURE OF LEFT RADIUS, INIT FOR CLOS FX COMPARISON: None. FLUOROSCOPY TIME: 57 seconds Spot images saved to PACS. TECHNIQUE: Intra-operative images acquired during surgical procedure to evaluate progress. NUMBER OF IMAGES: 4 LIMITATIONS: None. FINDINGS: Fluoroscopy was provided for intraoperative procedure. Please refer to the operative repo rt further discussion. IMPRESSION: IMAGE(S) OBTAINED DURING PROCEDURE. COMMENT: Quality ID [id number]: Final reports for procedures using fluoroscopy that document radiation exp osure indices, or exposure time and number of fluorographic images (if radiation exposure indices are not available) Please consult full operative report of the attending physician for description of the procedure. TECHNICAL DOCUMENTATION: JOB ID: [id number] 2010 [employer]- All Rights Reserved Reading location - IP/workstation name: [email or web address]
--- NOTE | 2020-05-24 15:35 | RADIOLOGY REPORT (SQ) ---
EXAM DESCRIPTION: WRIST RIGHT 2 VIEWS; NO CHG FLUORO IMAGES COMPLETED DATE/TIME: 05/24/2020 3:26 pm; 05/24/2020 3:25 pm REASON FOR STUDY: ORIF RIGHT WRIST ASSISTED WITH FLUORO IN OR S52.531A COLLES' FRACTURE OF RIGHT RA DIUS, INIT FOR CLOS FX S52.532A COLLES' FRACTURE OF LEFT RADIUS, INIT FOR CLOS FX COMPARISON: None. FLUOROSCOPY TIME: 57 seconds Spot images saved to PACS. TECHNIQUE: Intra-operative images acquired during surgical procedure to evaluate progress. NUMBER OF IMAGES: 4 LIMITATIONS: None. FINDINGS: Fluoroscopy was provided for intraoperative procedure. Please refer to the operative repo rt further discussion. IMPRESSION: IMAGE(S) OBTAINED DURING PROCEDURE. COMMENT: Quality ID [id number]: Final reports for procedures using fluoroscopy that document radiation exp osure indices, or exposure time and number of fluorographic images (if radiation exposure indices are not available) Please consult full operative report of the attending physician for description of the procedure. TECHNICAL DOCUMENTATION: JOB ID: [id number] 2010 [employer]- All Rights Reserved Reading location - IP/workstation name: [email or web address]
[2020-05-24] MEDS ORDERED: HYDRALAZINE HCL INJ/PF 20 MG/1 ML SDV ONE (15:58)
[2020-05-24] MEDS: HYDRALAZINE HCL INJ/PF 20 MG/1 ML SDV IV PRN ×3 (16:02→16:21)
[2020-05-24] MEDS ORDERED: OXYCODONE-ACETAMINOPHEN 5-325 MG TABLET ONE (16:44)
[2020-05-24 18:11] VITALS: BP 178/84
== END 2020-05-24 17:45 | disposition home or self-care (01) ==
LOC: OROUT 09:43
PROVIDERS: ATTEND Orthopaedic Surgery
DX: S52.572A Other intraarticular fracture of lower end of left radius, initial encounter for closed fracture (principal); S52.551A Other extraarticular fracture of lower end of right radius, initial encounter for closed fracture; W10.8XXA Fall (on) (from) other stairs and steps, initial encounter; Y92.009 Unspecified place in unspecified non-institutional (private) residence as the place of occurrence of the external cause; Z20.828 Contact with and (suspected) exposure to other viral communicable diseases; E66.9 Obesity, unspecified; R54 Age-related physical debility; Z79.83 Long term (current) use of bisphosphonates; K21.9 Gastro-esophageal reflux disease without esophagitis; Z86.79 Personal history of other diseases of the circulatory system; Z79.899 Other long term (current) drug therapy
CPT/HCPCS: 25609; 25607; 93005; 36415; 85027; 87635; 80048; 81001; 71046; 73100 ×2; 93010; J2250; J3490 ×2; J1100; J3010; J0360; J2405; J2704; J0690; C9803; 01830; C1713; C1769; J0330